=== PATIENT | female | born 1960 | race Two or more races ===

== ENCOUNTER 2024-11-06 13:18 | Emergency (ER) | payer MEDICAID, OTHER ==
[~2024-11-06] VITALS: Ht 157.5 cm; Wt 71.6 kg
--- NOTE | 2024-11-06 13:32 | ECG ---
[facility] Test Date: 2024-11-06 Test Time: 13:28:50 Pat Name: MYRIAM JASMINE Department: ER Room: Gender: F Garbage Depot Worker: SAURAV : 1960 Requested By: ELIAS GRIFFIN Order Number: [id number] Reading MD: Measurements Intervals [place] Rate: 111 P: 37 IN: 149 QRS: 10 QRSD: 62 T: 72 QT: 378 QTc: 514 Interpretive Statements Sinus tachycardia Low voltage, precordial leads Borderline T wave abnormalities Prolonged QT interval Please click the below link to view image of tracing.
--- NOTE | 2024-11-06 13:53 | ED.PDOC ---
History of Present Illness HPI Comments 64 y/o F, with a history of costochondritis, presents with c/o dizziness, mid- upper back pain, and shortness of breath, today. Patient reports on being sent from her PCP during in-person office visit to r/o PE, due to endorsement of symptoms in addition to being found with a low SpO2 (96% on RA). She endorses dizziness and intermittent pain and difficulty breathing symptoms for the past 1 week, following unprovoked onset. Patient states on still being ambulatory amidst dizziness symptom. She informs of no recent brain injuries, sick contact, travel, or other relevant information, with exception of current intravaginal estrogen regimen placement. Patient denies any chest pain, vision or speech changes, palpitations, nausea, vomiting, fever, chills, or other associated symptoms or modifiers at this time. Chief Complaint: Dizziness Time Seen by MD: 13:35 Reviewed Notes: Nurses Notes, Medications, Allergies Information Source: Patient Mode of Arrival: Ambulatory Severity: Moderate Timing: Weeks Prehospital treatment: None Past Medical History Past Medical History (Other): costochondritis Surgical History: Cholecystectomy, Hysterectomy (partial ) Surgical History (Other): cataract surgery CROP QUANTITATIVE GENETICIST History: Denies all CROP QUANTITATIVE GENETICIST Hx Family History Family History: Unknown Social History Smoker: Non-Smoker Alcohol: Denies ETOH Use Drugs: Denies Drug Use Lives In: Home All Other Systems: Reviewed and Negative (Comprehensive systems review obtained and negative except for what is stated in the HPI.) Physical Exam General Appearance: No Apparent Distress, Normal HEENT: Normal ENT Inspection, Pharynx Normal, TMs Normal Neck: Full Range of Motion, Non-Tender, Normal, Normal Inspection Respiratory: Chest Non-Tender, Lungs Clear, No Accessory Muscle Use, No Respiratory Distress, Normal Breath Sounds Cardiovascular: No Edema, No JVD, No Murmur, No Gallop, Normal Peripheral Pulses, Regular Rate/Rhythm Breast Exam: Deferred Gastrointestinal: No Organomegaly, Non Tender, No Pulsatile Mass, Normal Bowel Sounds, Soft Genitalia: Deferred Pelvic: Deferred Rectal: Deferred Extremities: No calf tenderness, Normal capillary refill, Normal inspection, Normal range of motion, Non-tender, No pedal edema Musculoskeletal : Apperance: Normal Neurologic: Alert, financial analysis consultant II-XII nml as Tested, No Motor Deficits, Normal Affect, Normal Mood, No Sensory Deficits, Other (Patient was alert and oriented and answering all questions appropriately, 5/5 strength to bilateral upper and lower extremities, ambulates with a steady gait without assistance, normal heel and toe walk, sensation intact to light touch throughout, cranial nerves 2-12 intact, no pronator drift) Cerebellar Function: Normal Reflexes: NOT DONE Skin: Dry, Normal Color, Warm Lymphatic: No Adenopathy Was a procedure done? Was a procedure done?: No EKG EKG : Pulse Rate (adult): 111 [place]: Normal Cardiac Rhythm: ST Block: None Hypertrophy: None ST: Normal Differential Dx Considerations may include: ND, PE, ACS, URI, PNA, viral syndrome, costochondritis, pericarditis, vertigo X-Ray, Labs, Meds, VS Vital Signs Date Time Temp Pulse Resp B/P (MAP) Pulse Ox O2 Delivery O2 Flow Rate FiO2 11/06/24 16:55 100 16 148/93 (111) 98 11/06/24 13:52 111 11/06/24 13:28 111 11/06/24 13:25 97.9 110 18 151/91 (111) 97 97.9 Lab Test 11/06/24 15:55 11/06/24 13:50 11/06/24 13:25 Range/Units Urine Color Colorless Yellow Urine Clarity Clear Clear Urine pH 7.0 5.0-9.0 Urine Specific [place] 1.007 1.001-1.035 Urine Protein Negative Negative Urine Ketones Negative Negative Urine Blood Negative Negative /uL Urine Nitrite Negative Negative Urine Bilirubin Negative Negative Urine Urobilinogen Normal Negative mg/dL Urine Leukocyte Esterase 3+ Negative /uL Urine RBC 2 0 - 4 /hpf Urine Microscopic WBC 27 H 0-5 /HPF Urine Squamous Epithelial Cells Few <5 /hpf Urine Bacteria None seen None Seen /hpf Urine Glucose Normal Normal mg/dL White Blood Count 8.1 4.4-10.8 10^3/uL Red Blood Count 4.99 4.0-5.20 10^6/uL Hemoglobin 14.4 12.2-16.2 g/dL Hematocrit 42.9 36.0-46.0 % Mean Corpuscular Volume 85.9 80.0-100.0 fL Mean Corpuscular Hemoglobin 28.8 28.0-32.0 pg Mean Corpuscular Hemoglobin Concent 33.5 32.0-36.0 g/dL Red Cell Distribution Width 14.0 11.8-14.3 % Platelet Count 478 H 140-450 10^3/uL Mean Platelet Volume 7.0 6.9-10.8 fL Neutrophils (%) (Auto) 51.5 37.0-80.0 % Lymphocytes (%) (Auto) 38.3 10.0-50.0 % Monocytes (%) (Auto) 6.1 0.0-12.0 % Eosinophils (%) (Auto) 3.1 0.0-7.0 % Basophils (%) (Auto) 1.0 0.0-2.0 % Neutrophils # (Auto) 4.1 1.6-8.6 10 ^3/uL Lymphocytes # (Auto) 3.1 0.4-5.4 10 ^3/uL Monocytes # (Auto) 0.5 0-1.3 10 ^3/uL Eosinophils # (Auto) 0.3 0-0.8 10 ^3/uL Basophils # (Auto) 0.1 0-0.2 10 ^3/uL Nucleated Red Blood Cells 0.0 % D-Dimer, Quantitative 0.24 0.0-0.49 mg/L FEU Sodium Level 139 136-145 mmol/L Potassium Level 4.2 3.5-5.1 mmol/L Chloride Level 103 98-107 mmol/L Carbon Dioxide Level 27 20-31 mmol/L Anion Gap 9 5-15 Blood Urea Nitrogen 7 L 9-23 mg/dL Creatinine 0.93 0.550-1.02 mg/dL Glomerular Filtration Rate Calc 69 >90 mL/min BUN/Creatinine Ratio 7.5 L 10.0-20.0 Serum Glucose 127 H 74-106 mg/dL Calcium Level 10.9 H 8.7-10.4 mg/dL Troponin I High Sensitivity < 3 L </=34 ng/L POC Glucose 175 H 70-106 mg/dl X-Ray, Labs, Meds, VS Comment 64-year-old female here today with the above complaints. Vital signs notable for initial tachycardia however improved to the 80s without any intervention. Patient was never hypoxic during her stay in the ER. Physical exam as above without any acute findings. Normal cardiac, pulmonary, and neurologic exams. D-dimer negative, doubt PE. Troponin negative, EKG without evidence of acute ischemia, heart score two, doubt ACS. CT head scan without any acute findings. Given the patient was overall reassuring workup, I provided the patient with reassurance and she was subsequently stated that she felt significantly improved and was tearful and stated she had been very anxious that she had a blood clot and she was going to from it after reading online and talking to her friends. The patient was a primary care doctor she can follow up with and I encouraged her to schedule an appointment in the next 2-3 days for re- evaluation. I provided the patient was strict return precautions for any signs of chest pain, numbness, weakness, headache, vision changes, shortness of breath, fevers, nausea/vomiting, or any other new or concerning symptoms. Patient expressed understanding and was discharged home in stable condition ambulating with a steady gait in no distress. Images Reviewed?: Images reviewed and evaluated by me Time of 1ST Reevaluation: 14:05 Reevaluation 1ST: Unchanged Time of 2ND Reevaluation: 15:07 Reevaluation 2ND: Heart rate low 80s Time of 3RD Reevaluation: 16:48 Reevaluation 3RD: Resolved Patient Education/Counseling: Diagnosis, Treatment, Prognosis, Need For Follow Up Family Education/Counseling: No Family Present Additional Information Previous medical encounters reviewed: N/A The following tests were ordered, and results were reviewed by me: UA, troponin, D-dimer, CBC, BMP, EKG, CT head w/o contrast Additional Information was gathered from interviewing the following independent historians: N/A I reviewed and agreed with the following test results read by other providers: CT head w/o contrast I discussed treatment and results with medical personnel and: Patient Departure 1 Departure Time of Disposition: 16:01 Impression: Primary Impression: Dizziness Disposition: 01 HOME / SELF CARE / HOMELESS Condition: Stable Critical Care Note Critical Care Time?: No Stability Stability form required: No Heart Score Heart Score: Heart Score Response (Comments) Value History Slightly Suspicious 0 EKG Normal 0 Age 45-64 1 Risk Factors 1 or 2 risk factors 1 Troponin Normal limit 0 Total 2 YARELY LAYNE Nov 06, 2024 13:52 ELIAS GRIFFIN MD Nov 06, 2024 15:07
--- NOTE | 2024-11-06 14:03 | DVH ---
EXAM: CT HEAD WITHOUT CONTRAST HISTORY: dizzy COMPARISON: None TECHNIQUE: Axial images of the head were obtained and reformatted in coronal and sagittal planes. All CT scans at this medical facility are performed using dose modulation techniques as appropriate t o a performed exam including the following: Automated exposure control was utilized; adjustment of th e MA and/or KV according to patient size; and use of iterative reconstruction technique. CT Dose: CTDI volume is 52.81 mGy. Dose-length product is 755.91 mGy*cm FINDINGS: There is no evidence of acute intracranial hemorrhage, mass, mass effect midline shift. There is no h ydrocephalus or extra-axial fluid collection. Newberry-white matter differentiation is maintained. The visualized paranasal sinuses and mastoid air cells are clear. The calvarium is intact. IMPRESSION: 1. No acute intracranial process. HS:Y
[2024-11-06 14:10] LABS: Basophils # (auto) 0.1 10 ^3/uL (0-0.2); Eosinophils # (auto) 0.3 10 ^3/uL (0-0.8); Eosinophils % (auto) 3.1 % (0.0-7.0); Hematocrit 42.9 % (36.0-46.0); Hemoglobin 14.4 g/dL (12.2-16.2); Lymphocytes # (auto) 3.1 10 ^3/uL (0.4-5.4); Lymphocytes % (auto) 38.3 % (10.0-50.0); Mean Corpuscular Hemoglobin 28.8 pg (28.0-32.0); Mean Corpuscular Hgb Conc. 33.5 g/dL (32.0-36.0); Mean Corpuscular Volume 85.9 fL (80.0-100.0); Monocytes # (auto) 0.5 10 ^3/uL (0-1.3); Monocytes % (auto) 6.1 % (0.0-12.0); Neutrophils # (auto) 4.1 10 ^3/uL (1.6-8.6); Neutrophils % (auto) 51.5 % (37.0-80.0); Platelet Count (auto) 478 10^3/uL (140-450); Red Blood Cells 4.99 10^6/uL (4.0-5.20); White Blood Cell 8.1 10^3/uL (4.4-10.8)
[2024-11-06 14:26] LABS: Chloride 103 mmol/L (98-107); Potassium 4.2 mmol/L (3.5-5.1); Sodium 139 mmol/L (136-145)
[2024-11-06 14:27] LABS: Anion Gap 9 (5-15); Carbon Dioxide 27 mmol/L (20-31)
[2024-11-06 14:32] LABS: BUN/Creatinine Ratio 7.5 (10.0-20.0); Blood Urea Nitrogen 7 mg/dL (9-23); Calcium 10.9 mg/dL (8.7-10.4); Glucose 127 mg/dL (74-106)
[2024-11-06 15:57] LABS: Urine Bacteria None Seen /hpf (None Seen)
[2024-11-06 16:01] LABS: Urine Blood Negative /uL (Negative); Urine Clarity Clear (Clear); Urine Color Colorless (Yellow); Urine Protein, UAD Negative (Negative); Urine Specific Gravity 1.007 (1.001-1.035); Urine Squamous Epithelial Cell FEW /hpf (<5); Urine Urobilinogen Normal (Negative); Urine WBC 27 /HPF (0-5)
[2024-11-06 18:10] VITALS: BP 126/78; PULSE 68; RESP 16; TEMP 97.9; O2SAT 98
== END 2024-11-06 18:12 | disposition home or self-care (01) ==
LOC: ER 13:18
DX: R42 Dizziness and giddiness (principal); R06.02 Shortness of breath; M54.6 Pain in thoracic spine; Z90.49 Acquired absence of other specified parts of digestive tract; Z90.710 Acquired absence of both cervix and uterus
CPT/HCPCS: 36415; 70450; 80048; 81001; 82947; 82962; 84484; 85025; 85379; 93005

== ENCOUNTER 2024-11-10 11:43 | Inpatient (IN) | payer MEDICAID ==
[~2024-11-10] VITALS: Ht 157.5 cm; Wt 74.0 kg
--- NOTE | 2024-11-10 12:36 | ED.PDOC ---
History of Present Illness HPI Comments 64 y/o F, with a history of costochondritis, fibromyalgia, thyroid disease, cholecystectomy, complete hysterectomy, and DM, presents with c/o shortness of breath, chest discomfort, and dizziness, today. Patient is a poor historian and reports on returning to the ED following previous visit on 11/06/24 for same symptoms, due to PCP requesting her to get a CT angio chest to r/o PE. She states on only having a CT head and all lab workup findings being benign prior to discharge during previous visit. She denies having any palpitations, vision or speech changes, fever, chills, or other associated symptoms or modifiers at this time. Chief Complaint: Shortness of Breath Time Seen by MD: 12:00 Primary Care Provider: ALVIN Reviewed Notes: Nurses Notes, Medications, Allergies Allergies: Coded Allergies: Iodine (Verified Allergy, Unknown, 11/10/24) Information Source: Patient Mode of Arrival: Ambulatory Severity: Moderate Timing: Hours Duration: Since onset Prehospital treatment: None Past Medical History PAST MEDICAL HISTORY: DM, Thyroid Past Medical History (Other): costochondritis, fibromyalgia Surgical History: Cholecystectomy, Hysterectomy (complete ) Surgical History (Other): cataract surgery CHIEF AIRPORT GUIDE History: Denies all CHIEF AIRPORT GUIDE Hx Family History Family History: Reviewed,noncontributory to illness, No family hx of DM, No family hx of Heart gage, No family hx of HTN, No family hx ofKidney gage, No family hx of Liver gage, No family hx of Lung gage, No family hx of Stroke, Family hx of Cancer (bladder cancer ) Social History Smoker: Non-Smoker Alcohol: Denies ETOH Use Drugs: Denies Drug Use Lives In: Home Constitutional: denies: chills, diaphoresis, fatigue, fever, malaise, sweats, weakness, others EENTM: denies: blurred vision, double vision, ear bleeding, ear discharge, ear drainage, ear pain, ear ringing, eye pain, eye redness, hearing loss, mouth pain, mouth swelling, nasal discharge, nose bleeding, nose congestion, nose pain, photophobia, tearing, throat pain, throat swelling, voice changes, others Respiratory: reports: shortness of breath; denies: cough, hemoptysis, orthopnea, SOB at rest, SOB with excertion, stridor, wheezing, others Cardiovascular: reports: chest pain, dizzy spells; denies: diaphoresis, Dyspnea on exertion, edema, irregular heart beat, left arm pain, lightheadedness, palpitations, PND, syncope, others Gastrointestinal: denies: abdomen distended, abdominal pain, blood streaked bowels, constipated, diarrhea, dysphagia, difficulty swallowing, hematemesis, melena, nausea, poor appetite, poor fluid intake, rectal bleeding, rectal pain, vomiting, others Genitourinary: denies: abnormal vagina bleeding, burning, dyspareunia, dysuria, flank pain, frequency, hematuria, incontinence, pain, , vagina discharge, urgency, others Neurological: denies: dizziness, fainting, headache, left sided numbness, left sided weakness, numbness, paresthesia, pre-existing deficit, right sided numbness, right sided weakness, seizure, speech problems, tingling, tremors, weakness, others Musculoskeletal: denies: back pain, gout, joint pain, joint swelling, muscle pain, muscle stiffness, neck pain, others Integumetry: denies: bruises, change in color, change in hair/nails, dryness, laceration, lesions, lumps, rash, wounds, others Allergic/Immunocompromised: denies: Difficulty Healing, Frequent Infections, Hives, Itching, others Hematologic/Lymphatic: denies: anemia, blood clots, easy bleeding, easy bruising, swollen glands, others Endocrine: denies: excessive hunger, excessive sweating, excessive thirst, excessive urination, flushing, intolerance to cold, intolerance to heat, unexplained weight gain, unexplained weight loss, others Psychiatric: denies: anxiety, bipolar disorder, depression, hopeless, panic disorder, schizophrenia, sleepless, suicidal, others All Other Systems: Reviewed and Negative Physical Exam General Appearance: No Apparent Distress HEENT: Normal ENT Inspection, Pharynx Normal, TMs Normal Neck: Full Range of Motion, Non-Tender, Normal, Normal Inspection Respiratory: Chest Non-Tender, Lungs Clear, No Accessory Muscle Use, No Respiratory Distress, Normal Breath Sounds Cardiovascular: No Edema, No JVD, No Murmur, No Gallop, Normal Peripheral Pulses, Regular Rate/Rhythm Breast Exam: Deferred Gastrointestinal: No Organomegaly, Non Tender, No Pulsatile Mass, Normal Bowel Sounds, Soft Genitalia: Deferred Pelvic: Deferred Rectal: Deferred Extremities: No calf tenderness, Normal capillary refill, Normal inspection, Normal range of motion, Non-tender, No pedal edema Musculoskeletal : Apperance: Normal Neurologic: Alert, breaker oiler II-XII nml as Tested, No Motor Deficits, Normal Affect, Normal Mood, No Sensory Deficits Cerebellar Function: Normal Reflexes: Normal Skin: Dry, Normal Color, Warm Lymphatic: No Adenopathy Was a procedure done? Was a procedure done?: No Differential Dx Considerations may include: VA, PE, ACS, URI, PNA, viral syndrome, costochondritis, electrolyte imbalance, vertigo, among others X-Ray, Labs, Meds, VS Vital Signs Date Time Temp Pulse Resp B/P (MAP) Pulse Ox O2 Delivery O2 Flow Rate FiO2 11/10/24 12:06 97.8 100 18 131/93 (106) 96 97.8 Current Medications Medications (Trade) Dose Ordered Sig/Liila Route Start Time Stop Time Status Last Admin Diphenhydramine HCl (Benadryl Injection) 25 mg ONCE ONCE IV 11/10/24 12:00 11/10/24 12:01 DC 11/10/24 13:45 The patient had some labs done on 11/06 which we feel is good enough to do the CAT scan of the chest to rule out PE. The patient was given Benadryl 25 mg IV push prior to the CAT scan The CAT scan of the chest to rule out PE is negative The patient was vital signs have remained stable The patient was being discharged and will follow up with her primary care doctor The patient will return to the emergency department's condition worsens. Images Reviewed?: Images reviewed and evaluated by me Time of 1ST Reevaluation: 12:30 Reevaluation 1ST: Unchanged Patient Education/Counseling: Diagnosis, Treatment, Prognosis, Need For Follow Up Family Education/Counseling: No Family Present Departure 1 Departure Time of Disposition: 16:07 Impression: Primary Impression: Dizziness Disposition: 01 HOME / SELF CARE / HOMELESS Condition: Fair Discharged With: Self Critical Care Note Critical Care Time?: No Stability Stability form required: No Heart Score Heart Score: Heart Score Response (Comments) Value History Moderate Suspicious 1 EKG Normal 0 Age 45-64 1 Risk Factors No known risk factors 0 Troponin Normal limit 0 Total 2 I personally scribed for BAILEE ZUNIGA MD ([email or web address]) on 11/10/24 at 12:36. Electronically submitted by Davie Shah ([email or web address]). I personally scribed for BAILEE ZUNIGA MD ([email or web address]) on 11/10/24 at 12:37. Electronically submitted by Davie Shah ([email or web address]). BAILEE ZUNIGA MD Nov 10, 2024 12:36
[2024-11-10] MEDS: diphenhdrAMINE HCL 50 MG/1 ML VL IV ONE (13:45)
--- NOTE | 2024-11-10 15:27 | DVH ---
CTA Chest with intravenous contrast INDICATION: sob COMPARISON: None TECHNIQUE: Multidetector spiral CTA of the chest was performed of the chest with intravenous contrast . PULMONARY ANGIOGRAPHY PROTOCOL was utilized using a bolus-tracking technique centered on the main p ulmonary artery. Axial, coronal and sagittal multiplanar and MIP reformats were performed. CONTRAST: Type of contrast: Omni 350 Contrast injected: 80 ml Radiation dose : Chest: CTDI volume is 11 mGy. Dose-length product is 363 mGy*cm The dose indicators for CT are the volume computed Tomography (CT) dose Index (CTDIvol) and the dose Length product (DLP), and are measured in units of mGy and mGy-cm, respectively. These indicators are not patient dose, but values generated from the CT scanner acquisition factors. The report includes radiation exposure data for exposures received during this examination. Findings: Pulmonary artery: No pulmonary embolism Lower neck: Normal thyroid. Lungs: Low lung volumes with streaky atelectasis in the lung bases. Curvilinear atelectasis or scarri ng in the right upper lung. Heart/Vascular Structures: Normal heart size. No pericardial effusion. Lymph Nodes: No adenopathy Pleura: No pleural effusion or significant pneumothorax. Musculoskeletal: Likely bone island in the T8 vertebral body. Soft tissues: Normal. Upper abdomen: Limited portions of the upper abdomen are unremarkable. IMPRESSION: 1. No pulmonary embolism. 2. Low lung volumes with streaky atelectasis in the lung bases. Curvilinear atelectasis or scarring in the right upper lung. No suspicious consolidation or nodule identified. HS:Y
[2024-11-10 16:32] VITALS: PULSE 82; RESP 18; O2SAT 97
[2024-11-10 17:29] LABS: Basophils # (auto) 0.1 10 ^3/uL (0-0.2); Basophils % (auto) 0.8 % (0.0-2.0); Eosinophils # (auto) 0.3 10 ^3/uL (0-0.8); Eosinophils % (auto) 2.9 % (0.0-7.0); Hematocrit 44.7 % (36.0-46.0); Hemoglobin 14.7 g/dL (12.2-16.2); Lymphocytes # (auto) 3.2 10 ^3/uL (0.4-5.4); Lymphocytes % (auto) 32.5 % (10.0-50.0); Mean Corpuscular Hemoglobin 28.9 pg (28.0-32.0); Mean Corpuscular Hgb Conc. 32.9 g/dL (32.0-36.0); Mean Corpuscular Volume 87.7 fL (80.0-100.0); Monocytes # (auto) 0.5 10 ^3/uL (0-1.3); Monocytes % (auto) 5.5 % (0.0-12.0); Neutrophils # (auto) 5.8 10 ^3/uL (1.6-8.6); Neutrophils % (auto) 58.3 % (37.0-80.0); Platelet Count (auto) 441 10^3/uL (140-450); Red Cell Distribution Width 14.3 % (11.8-14.3); White Blood Cell 9.9 10^3/uL (4.4-10.8)
[2024-11-10 17:41] LABS: Chloride 103 mmol/L (98-107); Potassium 3.9 mmol/L (3.5-5.1); Sodium 137 mmol/L (136-145)
[2024-11-10 17:42] LABS: Anion Gap 10 (5-15); Carbon Dioxide 24 mmol/L (20-31)
[2024-11-10 17:48] LABS: BUN/Creatinine Ratio 11.5 (10.0-20.0); Blood Urea Nitrogen 10 mg/dL (9-23); Calcium 10.6 mg/dL (8.7-10.4); Glucose 118 mg/dL (74-106)
[2024-11-10] MEDS ORDERED: DEXTROSE (50%) 50ML SYRG IV PRN (22:15)
[2024-11-10 22:22] VITALS: BP 152/99; PULSE 82; RESP 18; TEMP 97.8; O2SAT 97
--- NOTE | 2024-11-10 22:28 | DVHHP2 ---
History of Present Illness Reason for Visit: Shortness of breath History of Present Illness 64-year-old female presents for evaluation of shortness for breath. Patient endorses a one-week history of worsening shortness for breath. She reports symptoms starting spontaneously. She states having now constant shortness for breath with minimal exertion and at rest. Denies chest pain, she does report a history of costochondritis. No cough or fever. No other acute complaints reported. Past Medical History Thyroid, diabetes mellitus, fibromyalgia, costochondritis Past Surgical History Cholecystectomy and hysterectomy Family History Noncontributory Smoke: No ALCOHOL: none Drugs: None Lives: with Family Review of Systems Review of Systems Review of systems are currently negative otherwise addressed in HPI. Allergies: Coded Allergies: Iodine (Verified Allergy, Unknown, 11/10/24) Exam Vital Signs Vital Signs Date Time Temp Pulse Resp B/P (MAP) Pulse Ox O2 Delivery O2 Flow Rate FiO2 11/10/24 18:38 82 18 152/99 (116) 97 11/10/24 16:32 Room Air* 0 21 11/10/24 12:06 97.8 97.8 Exam Gen: 64-year-old female in mild distress Skin: Warm, dry, normal color and texture, no rash. HEENT: Normocephalic atraumatic, mucous membranes moist and pink. Neck: Cervical and supraclavicular nodes normal without enlargement, trachea is midline, thyroid gland is normal without masses. Pulmonary: Diminished breath sounds bilaterally Cardiac: Regular rate and rhythm. No murmur Abdomen: Soft, nontender, nondistended, bowel sounds present all 4 quadrants, no guarding, no rigidity, no organomegaly. Extremities: No cyanosis, clubbing, no edema Neuro: Cranial nerves II through XII grossly intact, normal affect and speech, no focal motor deficits. Labs/Xrays ORDERING PHYSICIAN: BAILEE ZUNIGA MD PROCEDURE(s): CTACH - CT ANGIO CHEST CONTRAST REASON: sob ORDER NUMBER(s): [id number], ACCESSION NUMBER(s): [id number] CTA Chest with intravenous contrast INDICATION: sob COMPARISON: None TECHNIQUE: Multidetector spiral CTA of the chest was performed of the chest with intravenous contrast. PULMONARY ANGIOGRAPHY PROTOCOL was utilized using a bolus- tracking technique centered on the main pulmonary artery. Axial, coronal and sagittal multiplanar and MIP reformats were performed. CONTRAST: Type of contrast: Omni 350 Contrast injected: 80 ml Radiation dose : Chest: CTDI volume is 11 mGy. Dose-length product is 363 mGy*cm The dose indicators for CT are the volume computed Tomography (CT) dose Index (CTDIvol) and the dose Length product (DLP), and are measured in units of mGy and mGy-cm, respectively. These indicators are not patient dose, but values generated from the CT scanner acquisition factors. The report includes radiation exposure data for exposures received during this examination. Findings: Pulmonary artery: No pulmonary embolism Lower neck: Normal thyroid. Lungs: Low lung volumes with streaky atelectasis in the lung bases. Curvilinear atelectasis or scarring in the right upper lung. Heart/Vascular Structures: Normal heart size. No pericardial effusion. Lymph Nodes: No adenopathy Pleura: No pleural effusion or significant pneumothorax. Musculoskeletal: Likely bone island in the T8 vertebral body. Soft tissues: Normal. Upper abdomen: Limited portions of the upper abdomen are unremarkable. IMPRESSION: 1. No pulmonary embolism. 2. Low lung volumes with streaky atelectasis in the lung bases. Curvilinear atelectasis or scarring in the right upper lung. No suspicious consolidation or nodule identified. HS:Y Labs Test 11/10/24 21:06 11/10/24 17:03 Range/Units Troponin I High Sensitivity < 3 L </=34 ng/L White Blood Count 9.9 4.4-10.8 10^3/uL Red Blood Count 5.10 4.0-5.20 10^6/uL Hemoglobin 14.7 12.2-16.2 g/dL Hematocrit 44.7 36.0-46.0 % Mean Corpuscular Volume 87.7 80.0-100.0 fL Mean Corpuscular Hemoglobin 28.9 28.0-32.0 pg Mean Corpuscular Hemoglobin Concent 32.9 32.0-36.0 g/dL Red Cell Distribution Width 14.3 11.8-14.3 % Platelet Count 441 140-450 10^3/uL Mean Platelet Volume 6.8 L 6.9-10.8 fL Neutrophils (%) (Auto) 58.3 37.0-80.0 % Lymphocytes (%) (Auto) 32.5 10.0-50.0 % Monocytes (%) (Auto) 5.5 0.0-12.0 % Eosinophils (%) (Auto) 2.9 0.0-7.0 % Basophils (%) (Auto) 0.8 0.0-2.0 % Neutrophils # (Auto) 5.8 1.6-8.6 10 ^3/uL Lymphocytes # (Auto) 3.2 0.4-5.4 10 ^3/uL Monocytes # (Auto) 0.5 0-1.3 10 ^3/uL Eosinophils # (Auto) 0.3 0-0.8 10 ^3/uL Basophils # (Auto) 0.1 0-0.2 10 ^3/uL Nucleated Red Blood Cells 0.0 % Sodium Level 137 136-145 mmol/L Potassium Level 3.9 3.5-5.1 mmol/L Chloride Level 103 98-107 mmol/L Carbon Dioxide Level 24 20-31 mmol/L Anion Gap 10 5-15 Blood Urea Nitrogen 10 9-23 mg/dL Creatinine 0.87 0.550-1.02 mg/dL Glomerular Filtration Rate Calc 75 >90 mL/min BUN/Creatinine Ratio 11.5 10.0-20.0 Serum Glucose 118 H 74-106 mg/dL Calcium Level 10.6 H 8.7-10.4 mg/dL Assessment/Plan Assessment/Plan Assessment Acute respiratory distress Diabetes mellitus Plan Admit the patient to [facility] to the hospitalist Pulmonary consultation Echocardiogram pending Resume home medications Continue treatment per orders. Plan discussed with: Patient My Orders Orders - NEERAJ SOLOMON AGACN Procedure Category Date Status Time Atorvastatin (Lipitor) PHA 11/11/24 Logged 22:00 Gabapentin Capsule PHA 11/11/24 Logged (Neurontin Capsule) 10:00 *Consult CONS 11/10/24 Transmitted / 22:04 Albuterol Medneb PHA 11/10/24 Logged (Ventolin Medneb) 22:15 B-Type Natriuretic LAB 11/10/24 In Process Peptide 22:04 Echo 2d Mode Cardiac US 11/10/24 Logged DOP 22:04 Basic Metabolic Panel LAB 11/11/24 Verified 04:00 Glucose Blood PHA 11/11/24 Logged (Accu-Chek Comfort 00:00 Insulin R (Human) PHA 11/11/24 Logged (Insulin R) 00:00 Dextrose 50% Syringe PHA 11/10/24 Logged 22:15 Admit ADMIT 11/10/24 Transmitted 22:04 Ondansetron Hcl PHA 11/10/24 Logged (Zofran) 22:15 Enoxaparin Sodium PHA 11/11/24 Logged (Lovenox) 10:00 Cardiac DIET 11/11/24 Transmitted Diet-2gna,Lofat,Lochol Breakfast Condition: Stable KRYSTIAN 11/10/24 In Process 22:04 Bedrest With Bathroom KRYSTIAN 11/10/24 In Process Privileg 22:04 Date of Service: Nov 10, 2024 Billing Provider: NEERAJ SOLOMON Common Visit Codes: [id number] INP/OBS CARE (HIGH) NEREAJ SOLOMON Nov 10, 2024 22:27
[2024-11-11] VITALS (11 sets, daily range): BP systolic 119–170; BP diastolic 69–99; PULSE 79–124; RESP 16–19; TEMP 97.4–98.1; O2SAT 93–98
[2024-11-11] MEDS: InsuLIN REG 1unit/0.01ml Soln (100units/ml) SC SCH
[2024-11-11] MEDS: ACCU-CHEK COMFORT CURVE STRIP VI SCH (01:11)
[2024-11-11] MEDS: ACETAMINOPHEN 325 MG TAB PO PRN (02:11)
[2024-11-11] MEDS: hydrALAZINE HCL 20 MG/ML VL IV ONE (02:12)
[2024-11-11] MEDS: LISINOPRIL 5 MG TAB PO ONE (02:12)
[2024-11-11] MEDS ORDERED: PANT40TA2 PO (02:40)
[2024-11-11] MEDS ORDERED: ZOLP10TA6 PO (02:40)
[2024-11-11] MEDS ORDERED: OXY5T GT (02:40)
[2024-11-11] MEDS ORDERED: TRAZ-227 PO (02:40)
[2024-11-11] MEDS ORDERED: CETI10TA2 PO (02:40)
[2024-11-11] MEDS ORDERED: ROSU10TA16 PO (02:40)
[2024-11-11] MEDS ORDERED: ALPR1TAB2 PO (02:40)
[2024-11-11] MEDS ORDERED: ALPR1TAB7 PO (02:40)
[2024-11-11] MEDS ORDERED: GLYB5TAB8 PO (02:40)
[2024-11-11] MEDS ORDERED: SENN-58 PO (02:40)
[2024-11-11] MEDS ORDERED: oxyCODONE HCL 5MG TAB PO PRN (03:15)
[2024-11-11] MEDS: oxyCODONE HCL 5MG TAB PO PRN (03:26)
[2024-11-11 06:02] LABS: Anion Gap 12 (5-15); Carbon Dioxide 21 mmol/L (20-31); Chloride 106 mmol/L (98-107); Potassium 3.7 mmol/L (3.5-5.1); Sodium 139 mmol/L (136-145)
[2024-11-11 06:08] LABS: BUN/Creatinine Ratio 12.9 (10.0-20.0); Blood Urea Nitrogen 11 mg/dL (9-23)
[2024-11-11 06:16] LABS: Calcium 10.7 mg/dL (8.7-10.4); Glucose 127 mg/dL (74-106)
[2024-11-11] MEDS ORDERED: IBU600T PO (07:30)
[2024-11-11] MEDS: ALBUTEROL SULF 2.5 MG/0.5ML(0.5%) NEB SOLN NEB PRN (08:41)
[2024-11-11] MEDS: GABAPENTIN 100 MG CAP PO SCH (10:00)
[2024-11-11] MEDS: ENOXAPARIN SOD 40 MG/0.4 ML SYRINGE SC SCH (10:50)
[2024-11-11] MEDS: ONDANSETRON HCL 4 MG/2 ML VIAL IV PRN (12:08)
--- NOTE | 2024-11-11 13:19 | DVHPN2 ---
Reviewed: Care Plan, H&P, Labs, Medications, Previous Orders Changes from previous H/P or p: No Changes General: Per HPI Objective Vitals Vital Signs Date Time Temp Pulse Resp B/P (MAP) Pulse Ox O2 Delivery O2 Flow Rate FiO2 11/11/24 13:00 97.4 79 18 120/77 (91) 97 97.4 11/11/24 10:05 Room Air* 0 21 Intake/Output Intake and Output 11/11/24 07:00 Intake Total 0 ml Balance 0 ml Intake Oral 0 ml # Voids 2 Medications Current Medications Medications Dose Ordered Sig/Lilia Route Start Time Stop Time Status Last Admin Dose Admin Atorvastatin Calcium 10 mg HS PO 11/11/24 22:00 Gabapentin 100 mg DAILY PO 11/11/24 10:00 Albuterol 2.5 mg Q6HPRN PRN NEB 11/10/24 22:15 11/11/24 08:41 2.5 MG Diagnostic Test (Pha) 1 strip Q6HR 11/11/24 00:00 11/11/24 12:12 1 STRIP Insulin Human Regular Q6HR SC 11/11/24 00:00 11/11/24 05:57 2 UNITS Dextrose 50 ml UD PRN IV 11/10/24 22:15 Ondansetron HCl 4 mg Q4HP PRN IV 11/10/24 22:15 11/11/24 12:08 4 MG Enoxaparin Sodium 40 mg DAILY SC 11/11/24 10:00 11/11/24 10:50 40 MG Acetaminophen 650 mg Q8HPRN PRN PO 11/11/24 01:45 11/11/24 10:49 650 MG Oxycodone HCl 10 mg TIDPRN PRN PO 11/11/24 03:15 11/11/24 03:26 10 MG Laboratory Results Laboratory Tests 11/10/24 17:03 11/11/24 05:12 Chemistry Test 11/10/24 17:03 11/11/24 05:12 Calcium Level 10.6 mg/dL (8.7-10.4) H 10.7 mg/dL (8.7-10.4) H Cardiac Markers Test 11/10/24 17:03 B-Type Natriuretic Peptide 0.41 pg/mL (0-100) Assessment/Plan Assessment/Plan Acute respiratory distress Diabetes mellitus Plan Admit the patient to [facility] to the hospitalist Pulmonary consultation Echocardiogram pending Plan discussed with: Patient Date of Service: Nov 11, 2024 Billing Provider: JENNA PYLE DO Common Visit Codes: [id number] INP/OBS CARE(HIGH) JENNA PYLE DO Nov 11, 2024 13:19
[2024-11-11] MEDS ORDERED: MILN50TA PO (19:36)
[2024-11-11] MEDS: ATORVASTATIN 20 MG TAB PO SCH (21:09)
[2024-11-11] MEDS: traZODone HCL 50 MG TAB PO SCH (22:00)
[2024-11-12] VITALS (11 sets, daily range): BP systolic 81–117; BP diastolic 45–76; PULSE 71–115; RESP 17–18; TEMP 97.3–98.5; O2SAT 94–97
--- NOTE | 2024-11-12 15:08 | DVHPN2 ---
Reviewed: Care Plan, H&P, Labs, Medications, Previous Orders Changes from previous H/P or p: No Changes General: Per HPI Objective Vitals Vital Signs Date Time Temp Pulse Resp B/P (MAP) Pulse Ox O2 Delivery O2 Flow Rate FiO2 11/12/24 12:53 97.7 83 18 88/55 (66) 96 97.7 11/12/24 10:15 Room Air* 0 21 Intake/Output Intake and Output 11/12/24 07:00 Intake Total 5034 ml Balance 5034 ml Intake Oral 5034 ml # Voids 14 Medications Current Medications Medications Dose Ordered Sig/Lilia Route Start Time Stop Time Status Last Admin Dose Admin Atorvastatin Calcium 10 mg HS PO 11/11/24 22:00 Gabapentin 100 mg DAILY PO 11/11/24 10:00 Albuterol 2.5 mg Q6HPRN PRN NEB 11/10/24 22:15 11/11/24 08:41 2.5 MG Diagnostic Test (Pha) 1 strip Q6HR 11/11/24 00:00 11/12/24 12:20 1 STRIP Insulin Human Regular Q6HR SC 11/11/24 00:00 11/12/24 12:21 2 UNITS Dextrose 50 ml UD PRN IV 11/10/24 22:15 Ondansetron HCl 4 mg Q4HP PRN IV 11/10/24 22:15 11/11/24 12:08 4 MG Enoxaparin Sodium 40 mg DAILY SC 11/11/24 10:00 11/12/24 09:30 40 MG Acetaminophen 650 mg Q8HPRN PRN PO 11/11/24 01:45 11/12/24 00:21 650 MG Oxycodone HCl 10 mg TIDPRN PRN PO 11/11/24 03:15 11/12/24 09:40 10 MG Trazodone HCl 50 mg HS PO 11/11/24 22:00 Laboratory Results Laboratory Tests 11/10/24 17:03 11/11/24 05:12 Assessment/Plan Assessment/Plan Acute respiratory distress Diabetes mellitus Plan Admit the patient to [facility] to the hospitalist Pulmonary consultation Echocardiogram pending Plan discussed with: Patient My Orders Orders - JENNA PYLE DO Procedure Category Date Status Time Brain Head Wo Contrast MRI 11/12/24 Transmitted 15:07 Date of Service: Nov 12, 2024 Billing Provider: JENNA PYLE DO Common Visit Codes: [id number] INP/OBS CARE(HIGH) JENNA PYLE DO Nov 12, 2024 15:08
[2024-11-12] MEDS ORDERED: MECLIZINE HCL 25 MG TAB PO PRN (15:15)
--- NOTE | 2024-11-12 16:04 | DVHINCON2 ---
Date of service: Nov 11, [address] Mccall Reason for Consultation Acute respiratory distress, atelectasis History of Present Illness A 64-year-old woman with past medical history of thyroid disease, diabetes mellitus, fibromyalgia, and costochondritis who presented to ED on 11/10/24 for evaluation of shortness of breath. Patient c/o 1-week history of worsening shortness of breath. She reported symptoms started spontaneously, currently having constant shortness of breath with minimal exertion and at rest. Denied chest pain. Positive history of costochondritis. No cough or fever. No other acute complaints reported. Patient was admitted for further care, and pulmonary consultation is requested for evaluation and management due to the above findings. Review of Systems: 14-point review of systems negative unless otherwise noted above. Past Medical History Thyroid disease, diabetes mellitus, fibromyalgia, costochondritis Past Surgical History Cholecystectomy and hysterectomy. Medications: Reviewed. Allergies: Iodine Family History: Bladder cancer Leukemia Stomach cancer Malignant neoplasm of breast. Social History: Nonsmoker. No alcohol or illicit drug use. Family History: FH: bladder cancer G8 FATHER FH: leukemia Grandmother FH: stomach cancer Grandmother Malignant neoplasm of breast Grandmother Allergies: Coded Allergies: Iodine (Verified Allergy, Unknown, 11/10/24) Home Meds Reported Medications Milnacipran Hydrochloride (Savella) 50 Mg Tab, 100 MG PO BID, TAB 11/11/24 Ibuprofen Micronized (MOTRIN TABLET) 600 Mg Tb, 800 MG PO PRN, #40 TAB *Black box warning-NSAIDS can increase risk of ID & hypertension, GI irritation, ulceration, bleed, perferation. Do not use post cardiac surgery. Use short duration/lowest effective dose. 11/11/24 Trazodone Hcl (Trazodone Hcl) 50 Mg Tab, 50 MG PO, MG 11/11/24 Rosuvastatin Calcium (Crestor) 10 Mg Tab, 10 MG PO, TAB 11/11/24 Zolpidem Tartrate (Zolpidem Tartrate) 10 Mg Tab, 10 MG PO, TAB 11/11/24 Cetirizine Hcl (Kls Aller-Ron) 10 Mg Tab, 10 MG PO, TAB 11/11/24 Alprazolam (Alprazolam) 1 Mg Tab, 1 MG PO, TAB 11/11/24 Glyburide (Glyburide) 5 Mg Tab, 5 MG PO for 30 Days, MG 11/11/24 Alprazolam (Xanax) 1 Mg Tab, 1 MG PO, TAB 11/11/24 Pantoprazole Sodium Sesquihydr (Protonix) 40 Mg Tab, 40 MG PO DAILY, #30 TAB 11/11/24 Senna (Senokot) 8.6 Mg Tab, 8.6 MG PO, TAB 11/11/24 Oxycodone Hcl (OXYCODONE HCL) 5 Mg Tb, 5 MG GT, TAB 11/11/24 Current Medications Current Medications Medications (Trade) Dose Ordered Sig/Lilia Route PRN Reason Start Time Stop Time Status Last Admin Atorvastatin Calcium (Lipitor) 10 mg HS PO 11/11/24 22:00 Trazodone HCl (Desyrel) 50 mg HS PO 11/11/24 22:00 Meclizine HCl (Antivert Tablet) 25 mg Q6HPRN PRN PO DIZZINESS 11/12/24 15:15 Vital Signs Vital Signs Date Time Temp Pulse Resp B/P (MAP) Pulse Ox O2 Delivery O2 Flow Rate FiO2 11/12/24 12:53 97.7 83 18 88/55 (66) 96 97.7 11/12/24 10:15 Room Air* 0 21 Physical Exam Gen.: Patient lying in bed in no apparent distress. Breathing on room air. Head: Normocephalic, atraumatic. Eyes: EOMI/PERRLA. Ears: Normal hearing. Normal anatomy. Neck/trachea: Trachea midline, supple. Nose: Normal external anatomy. Mouth: Moist mucous membranes. Chest: Decreased air entry bilaterally. No wheezing or rhonchi. Cardiovascular: Positive S1, positive S2. Regular rate and rhythm. Abdomen: Positive bowel sounds in all 4 quadrants. Soft, non-tender, non- distended. : Deferred. Rectal: Deferred. Skin: Warm, dry. Intact. Extremities: 2+ radial pulses bilaterally. No lower extremity edema. Neuro: Awake, alert, oriented x3. No gross motor or sensory deficits. Cranial nerves II through XII intact. Gait not assessed. Labs/Diagnostic Data Labs Test 11/12/24 12:13 11/11/24 05:12 11/10/24 21:06 11/10/24 17:03 Range/Units POC Glucose 143 H 70-106 mg/dl Sodium Level 139 136-145 mmol/L Potassium Level 3.7 3.5-5.1 mmol/L Chloride Level 106 98-107 mmol/L Carbon Dioxide Level 21 20-31 mmol/L Anion Gap 12 5-15 Blood Urea Nitrogen 11 9-23 mg/dL Creatinine 0.85 0.550-1.02 mg/dL Glomerular Filtration Rate Calc 77 >90 mL/min BUN/Creatinine Ratio 12.9 10.0-20.0 Serum Glucose 127 H 74-106 mg/dL Calcium Level 10.7 H 8.7-10.4 mg/dL Troponin I High Sensitivity < 3 L </=34 ng/L White Blood Count 9.9 4.4-10.8 10^3/uL Red Blood Count 5.10 4.0-5.20 10^6/uL Hemoglobin 14.7 12.2-16.2 g/dL Hematocrit 44.7 36.0-46.0 % Mean Corpuscular Volume 87.7 80.0-100.0 fL Mean Corpuscular Hemoglobin 28.9 28.0-32.0 pg Mean Corpuscular Hemoglobin Concent 32.9 32.0-36.0 g/dL Red Cell Distribution Width 14.3 11.8-14.3 % Platelet Count 441 140-450 10^3/uL Mean Platelet Volume 6.8 L 6.9-10.8 fL Neutrophils (%) (Auto) 58.3 37.0-80.0 % Lymphocytes (%) (Auto) 32.5 10.0-50.0 % Monocytes (%) (Auto) 5.5 0.0-12.0 % Eosinophils (%) (Auto) 2.9 0.0-7.0 % Basophils (%) (Auto) 0.8 0.0-2.0 % Neutrophils # (Auto) 5.8 1.6-8.6 10 ^3/uL Lymphocytes # (Auto) 3.2 0.4-5.4 10 ^3/uL Monocytes # (Auto) 0.5 0-1.3 10 ^3/uL Eosinophils # (Auto) 0.3 0-0.8 10 ^3/uL Basophils # (Auto) 0.1 0-0.2 10 ^3/uL Nucleated Red Blood Cells 0.0 % B-Type Natriuretic Peptide 0.41 0-100 pg/mL Assessment Impression: Acute respiratory distress Atelectasis, right upper lobe Fibromyalgia DM type 2 w/ hyperglycemia PE ruled out Costochondritis Overweight, BMI 29.3 Plan: Supplemental oxygen PRN Titrate to keep O2 sats above 92%. CT angio (11/10/24) demonstrated no pulmonary embolism. Low lung volumes with streaky atelectasis in the lung bases. Curvilinear atelectasis or scarring in the right upper lung. Continue bronchodilators. Incentive spirometry Follow up Echocardiogram Follow up Cardiology recommendations Accu-Cheks, ISS. Monitor renal function. Monitor electrolytes. Supplement as necessary. Monitor ins and outs. Diet and lifestyle modifications for weight reduction Recommend outpatient followup w/ Rheumatology DVT prophylaxis. Prognosis: Poor given patient's multiple co-morbidities. Rest of plan per hospitalist and other consultants. Thank you, Dr. Mccall, for allowing me to participate in this patient's care. Further recommendations will depend on the patient's clinical course. Please do not hesitate to contact me if you have any questions or concerns. This medical document was created using an electronic medical record system with [employer] dictation system. Although these documentations are being carefully reviewed, there may still be some phonetic and typographical changes. The errors are purely typographical, due to imperfection on the software program, and do not reflect any compromise in the patient's medical care. Plan discussed with: Patient, Other (RN/Dr. Mccall) JUAN RHODES MD Nov 12, 2024 16:04
--- NOTE | 2024-11-12 21:57 | DVHPN2 ---
Progress Note - Dictate Date Seen: Nov 12, 2024 Medical Necessity Reason Pt with a Central, PICC or Fol: No Subjective Patient seen and examined at bedside. Breathing comfortably on room air. Overnight events reviewed. vital signs Vital Sign Date Time Temp Pulse Resp B/P (MAP) Pulse Ox O2 Delivery O2 Flow Rate FiO2 11/12/24 21:00 98.5 80 17 117/70 (86) 95 98.5 11/12/24 19:44 Room Air* 0 21 Total Intake and Output 11/11/24 11/11/24 11/12/24 15:00 23:00 07:00 Intake Total 1834 ml 3200 ml Balance 1834 ml 3200 ml medications Current Medications Medications Dose Ordered Sig/Lilia Route Start Time Stop Time Status Last Admin Dose Admin Atorvastatin Calcium 10 mg HS PO 11/11/24 22:00 11/12/24 21:13 10 MG Gabapentin 100 mg DAILY PO 11/11/24 10:00 Albuterol 2.5 mg Q6HPRN PRN NEB 11/10/24 22:15 11/11/24 08:41 2.5 MG Diagnostic Test (Pha) 1 strip Q6HR 11/11/24 00:00 11/12/24 18:15 1 STRIP Insulin Human Regular Q6HR SC 11/11/24 00:00 11/12/24 12:21 2 UNITS Dextrose 50 ml UD PRN IV 11/10/24 22:15 Ondansetron HCl 4 mg Q4HP PRN IV 11/10/24 22:15 11/12/24 18:08 4 MG Enoxaparin Sodium 40 mg DAILY SC 11/11/24 10:00 11/12/24 09:30 40 MG Acetaminophen 650 mg Q8HPRN PRN PO 11/11/24 01:45 11/12/24 18:08 650 MG Oxycodone HCl 10 mg TIDPRN PRN PO 11/11/24 03:15 11/12/24 19:31 10 MG Trazodone HCl 50 mg HS PO 11/11/24 22:00 11/12/24 21:13 50 MG Meclizine HCl 25 mg Q6HPRN PRN PO 11/12/24 15:15 objective Gen.: Patient lying in bed in no apparent distress. Breathing on room air. Head: Normocephalic, atraumatic. Eyes: EOMI/PERRLA. Ears: Normal hearing. Normal anatomy. Neck/trachea: Trachea midline, supple. Nose: Normal external anatomy. Mouth: Moist mucous membranes. Chest: Decreased air entry bilaterally. No wheezing or rhonchi. Cardiovascular: Positive S1, positive S2. Regular rate and rhythm. Abdomen: Positive bowel sounds in all 4 quadrants. Soft, non-tender, non- distended. : Deferred. Rectal: Deferred. Skin: Warm, dry. Intact. Extremities: 2+ radial pulses bilaterally. No lower extremity edema. Neuro: Awake, alert, oriented x3. No gross motor or sensory deficits. Cranial nerves II through XII intact. Gait not assessed. laboratory and microbiology Laboratory Tests 11/11/24 05:12 11/10/24 17:03 Test 11/11/24 05:12 Range/Units Serum Glucose 127 H 74-106 mg/dL Assessment/Plan Impression: Acute respiratory distress Atelectasis, right upper lobe Fibromyalgia DM type 2 w/ hyperglycemia PE ruled out Costochondritis Overweight, BMI 29.3 Events: Breathing on room air Supplemental oxygen PRN Follow up Neurology recommendations Continue bronchodilators PRN Incentive spirometry Accu-Cheks, glycemic control Labs and imaging reviewed. Rest of plan as noted below. Plan: Supplemental oxygen PRN Titrate to keep O2 sats above 92%. CT angio (11/10/24) demonstrated no pulmonary embolism. Low lung volumes with streaky atelectasis in the lung bases. Curvilinear atelectasis or scarring in the right upper lung. Continue bronchodilators PRN. Incentive spirometry Follow up Echocardiogram Follow up Cardiology recommendations Accu-Cheks, ISS. Monitor renal function. Monitor electrolytes. Supplement as necessary. Monitor ins and outs. Diet and lifestyle modifications for weight reduction Recommend outpatient followup w/ Rheumatology DVT prophylaxis. Prognosis: Poor given patient's multiple co-morbidities. Rest of plan per hospitalist and other consultants. Thank you, Dr. Mccall, for allowing me to participate in this patient's care. Further recommendations will depend on the patient's clinical course. Please do not hesitate to contact me if you have any questions or concerns. This medical document was created using an electronic medical record system with [employer] system. Although these documentations are being carefully reviewed, there may still be some phonetic and typographical changes. The errors are purely typographical, due to imperfection on the software program, and do not reflect any compromise in the patient's medical care. Plan discussed with: Patient, Other (SRIKANTH Dunn) JUAN RHODES MD Nov 12, 2024 21:57
[2024-11-13] VITALS (12 sets, daily range): BP systolic 115–147; BP diastolic 66–89; PULSE 73–89; RESP 15–19; TEMP 97.8–98.1; O2SAT 93–97
--- NOTE | 2024-11-13 09:25 | DVH ---
PROCEDURE: MRI OF THE BRAIN WITHOUT CONTRAST. CLINICAL INDICATION: 64 years old, Female; dizzines (intractable. TECHNIQUE: Multiplanar, multi sequence MRI of the brain was performed without intravenous contrast. COMPARISON: CT scan of the head performed on 11/06/2024. FINDINGS: The signal abnormality of the brain parenchyma is within normal limits. There are no areas of restric rome diffusion to suggest acute infarct. No evidence of space occupying mass lesion, extra-axial colle ctions or hemorrhage is noted. The ventricles, sulci and basal cisterns are intact. There is no signa l abnormality in the posterior fossa. The paranasal sinuses and mastoid air cells are well pneumatized. The orbits and nasopharynx are inta ct. The osseous structures are intact. The vessels of the skull base demonstrate signal void consistent with patency. IMPRESSION: 1. No acute intracranial abnormality.
[2024-11-13] MEDS ORDERED: MECLIZINE HCL 25 MG TAB PO PRN (10:30)
[2024-11-13] MEDS: ALPRAZolam 0.5 MG TAB PO ONE (11:26)
[2024-11-13] MEDS: DOCUSATE SOD 100 MG CAP PO PRN (11:29)
--- NOTE | 2024-11-13 14:50 | DVHINCON2 ---
Date Seen: Nov 13, 2024 Referring Physician MD Stefany Reason for Consultation Echo, dizziness History of Present Illness This is a 64-year-old female patient who presents to the emergency room with chief complaint of dizziness for one week prior to emergency room arrival. The patient reports that she has been experiencing intermittent dizziness as well as shortness of breath. The patient decided to come to the emergency room for further evaluation. She denies any syncopal episodes. Cardiology has been consulted at this time for further evaluation. No twelve lead electrocardiogram done in the emergency room. A twelve lead electrocardiogram was ordered and performed at bedside at time of assessment and reveals normal sinus rhythm without any significant ST segment changes. Serial troponin levels were negative. Significant past medical history includes mitral valve prolapse, dyslipidemia, costochondritis, fibromyalgia, irritable bowel syndrome, chronic pain, and insomnia. Of note, patient's medication list reviewed and significant for oxycodone, Xanax, tramadol, and Ambien, all of which the patient states that she takes regularly. Past Medical History Past medical history reviewed. No other significant than mentioned above. Past Surgical History Cholecystectomy Hysterectomy Family History: FH: bladder cancer G8 FATHER FH: leukemia Grandmother FH: stomach cancer Grandmother Malignant neoplasm of breast Grandmother Family History Family history reviewed. Social History Denies the use of tobacco, alcohol or illicit drugs. Allergies: Coded Allergies: Iodine (Verified Allergy, Unknown, 11/10/24) Home Meds Reported Medications Milnacipran Hydrochloride (Savella) 50 Mg Tab, 100 MG PO BID, TAB 11/11/24 Ibuprofen Micronized (MOTRIN TABLET) 600 Mg Tb, 800 MG PO PRN, #40 TAB *Black box warning-NSAIDS can increase risk of [place] & hypertension, GI irritation, ulceration, bleed, perferation. Do not use post cardiac surgery. Use short duration/lowest effective dose. 11/11/24 Trazodone Hcl (Trazodone Hcl) 50 Mg Tab, 50 MG PO, MG 11/11/24 Rosuvastatin Calcium (Crestor) 10 Mg Tab, 10 MG PO, TAB 11/11/24 Zolpidem Tartrate (Zolpidem Tartrate) 10 Mg Tab, 10 MG PO, TAB 11/11/24 Cetirizine Hcl (Kls Aller-Ron) 10 Mg Tab, 10 MG PO, TAB 11/11/24 Alprazolam (Alprazolam) 1 Mg Tab, 1 MG PO, TAB 11/11/24 Glyburide (Glyburide) 5 Mg Tab, 5 MG PO for 30 Days, MG 11/11/24 Alprazolam (Xanax) 1 Mg Tab, 1 MG PO, TAB 11/11/24 Pantoprazole Sodium Sesquihydr (Protonix) 40 Mg Tab, 40 MG PO DAILY, #30 TAB 11/11/24 Senna (Senokot) 8.6 Mg Tab, 8.6 MG PO, TAB 11/11/24 Oxycodone Hcl (OXYCODONE HCL) 5 Mg Tb, 5 MG GT, TAB 11/11/24 Home Meds Home medications reviewed. Current Medications Current Medications Medications (Trade) Dose Ordered Sig/Lilia Route PRN Reason Start Time Stop Time Status Last Admin Meclizine HCl (Antivert Tablet) 25 mg Q6HPRN PRN PO DIZZINESS 11/12/24 15:15 11/13/24 10:33 DC Alprazolam (Xanax Tablet) 1 mg DAILY PO 11/14/24 10:00 Meclizine HCl (Antivert Tablet) 25 mg Q8HPRN PRN PO DIZZINESS 11/13/24 10:30 Docusate Sodium (Colace Capsule) 100 mg DAILYPRN PRN PO FOR CONSTIPATION 11/13/24 11:00 11/13/24 11:29 Review of Systems Constitutional: No symptom reported Ears, Nose, & Throat: No symptom reported Eyes: No symptom reported Neurological: Dizziness Pulmonary/Respiratory: Shortness of breath Cardiovascular: No symptom reported Gastrointestinal: No symptom reported Genitourinary: No symptom reported Musculoskeletal: No symptom reported Skin: No symptom reported Psychiatric: No symptom reported Endocrine: No symptom reported Hematologic/Lymphatic: No symptom reported Vital Signs Vital Signs Date Time Temp Pulse Resp B/P (MAP) Pulse Ox O2 Delivery O2 Flow Rate FiO2 11/13/24 10:00 94 Room Air* 0 21 11/13/24 09:00 97.9 75 15 115/66 (82) 97.9 Physical Exam General Appearance: Cooperative. Well-developed. Well-nourished. No acute distress. Pulmonary/Respiratory: Clear, bilateral breaths sounds. Cardiovascular/Chest: Regular rate and rhythm. Peripheral Pulses: 2+ Radial (R). 2+ Radial (L). 2+ Pedal (R). 2+ Pedal (L) Abdominal Exam: Normal bowel sounds. Ankle Exam: Negative ankle edema Lower extremities: Negative lower extremity edema Neuro/Mental Status: A/OX4, coherent. Thoughts/Psych: Normal thought pattern. Appropriate mood and affect. Good judgment and insight. Appearance: No acute distress. Skin Exam: Normal inspection. Normal color. Warm and dry. Labs/Diagnostic Data Labs Test 11/13/24 11:20 11/11/24 05:12 11/10/24 21:06 11/10/24 17:03 Range/Units POC Glucose 142 H 70-106 mg/dl Sodium Level 139 136-145 mmol/L Potassium Level 3.7 3.5-5.1 mmol/L Chloride Level 106 98-107 mmol/L Carbon Dioxide Level 21 20-31 mmol/L Anion Gap 12 5-15 Blood Urea Nitrogen 11 9-23 mg/dL Creatinine 0.85 0.550-1.02 mg/dL Glomerular Filtration Rate Calc 77 >90 mL/min BUN/Creatinine Ratio 12.9 10.0-20.0 Serum Glucose 127 H 74-106 mg/dL Calcium Level 10.7 H 8.7-10.4 mg/dL Troponin I High Sensitivity < 3 L </=34 ng/L White Blood Count 9.9 4.4-10.8 10^3/uL Red Blood Count 5.10 4.0-5.20 10^6/uL Hemoglobin 14.7 12.2-16.2 g/dL Hematocrit 44.7 36.0-46.0 % Mean Corpuscular Volume 87.7 80.0-100.0 fL Mean Corpuscular Hemoglobin 28.9 28.0-32.0 pg Mean Corpuscular Hemoglobin Concent 32.9 32.0-36.0 g/dL Red Cell Distribution Width 14.3 11.8-14.3 % Platelet Count 441 140-450 10^3/uL Mean Platelet Volume 6.8 L 6.9-10.8 fL Neutrophils (%) (Auto) 58.3 37.0-80.0 % Lymphocytes (%) (Auto) 32.5 10.0-50.0 % Monocytes (%) (Auto) 5.5 0.0-12.0 % Eosinophils (%) (Auto) 2.9 0.0-7.0 % Basophils (%) (Auto) 0.8 0.0-2.0 % Neutrophils # (Auto) 5.8 1.6-8.6 10 ^3/uL Lymphocytes # (Auto) 3.2 0.4-5.4 10 ^3/uL Monocytes # (Auto) 0.5 0-1.3 10 ^3/uL Eosinophils # (Auto) 0.3 0-0.8 10 ^3/uL Basophils # (Auto) 0.1 0-0.2 10 ^3/uL Nucleated Red Blood Cells 0.0 % B-Type Natriuretic Peptide 0.41 0-100 pg/mL Assessment Dizziness, rule out cardiac etiology Dyslipidemia History of mitral valve prolapse Costochondritis Fibromyalgia ?Polypharmacy Plan/Recommendation We will continue with the following plan/recommendations (Dr. Mcallister): * Transthoracic echocardiogram to evaluate cardiac function * Bilateral carotid ultrasound * Orthostatic vital signs * Obtain UDS * Close Cardiac surveillance; notify cardiology for an ECG changes Patient seen and examined at bedside with . Thank you for allowing us to care for this patient. Please call with any questions or concerns. Critical care time spent: 44 minutes This medical document was created using an electronic medical record system with voice recognition software and computerized dictation system. Although this document has been carefully reviewed, there might still be some phonetic and typographical errors. Occasional wrong-word or ``sound-alike substitutions may have occurred due to the inherent limitations of voice recognition software. These areas are purely typographical due to imperfections of the software programs and do not reflect any compromise in the patient's medical care. Please read the chart carefully and recognize, using context, where these substitutions have occurred. Plan discussed with: Patient NYHA Physical activity limitations: NA Date of Service: Nov 13, 2024 Billing Provider: PAULO HOLDEN Cardiology Common Codes: 54573-EOPMYIQ INP/OBS CARE (High) Cardiology Consultation Codes: 57914-[id number] CONSULT <45MIN PAULO HOLDEN Nov 13, 2024 14:50
--- NOTE | 2024-11-13 17:48 | DVH ---
Carotid Duplex Date: 11/13/2024 04:21 PM Clinical History: dizziness Comparison: None Technique: Duplex Doppler evaluation of the extracranial carotid and vertebral arteries including col or Doppler and spectral/pulsed waveform analysis was performed. Findings: RIGHT SIDE: The peak systolic velocities are 76.9 cm/s in the distal CCA and on 0 4 cm/s in the proximal ICA.The ICA/CCA ratio is less than 2. The external carotid artery is patent with peak systolic velocity of 97 cm/s proximally. There is appropriate antegrade flow in the right vertebral artery, 63.4 cm/s LEFT SIDE: The peak systolic velocities are 76.3 cm/s in the distal CCA and 87.3 cm/s in the proximal ICA.. The ICA/CCA ratio is less than 2. The external carotid artery is patent with peak systolic velocity of 95.7 cm/s proximally. There is appropriate antegrade flow in the left vertebral artery, 45.3 cm/s IMPRESSION: 1. No hemodynamically significant stenosis noted in the right carotid system. 2. No hemodynamically significant stenosis noted in the left carotid system. 3. Reference: Radiology 2003; 229:[id number]
--- NOTE | 2024-11-13 18:33 | DVHINCON2 ---
Date of service: Nov 13, [address] Mccall Reason for Consultation Dizziness, intractable History of Present Illness Ms. Blanco is a 64 years old right-handed female with a history of diabetes, anxiety, fibromyalgia, she came to the [facility] on 11/10/24 with a chief company of shortness of breath, she was discomfort, and dizziness. At this time, she is alert and fully oriented, she provided the following history Starting on 11/06/2024, the patient was has had intermittent dizziness in that she is spinning with associated nausea, vomiting, sometimes with numbness in the right arm. The event lasts for 5-45 minutes, it happens 0-3 times daily. This event happens without any triggers, it can happen when she is still in the chair or bed. There was no associated vision changes, hearing change, ringing in the years, weakness in the extremities. She was not had similar problems previously She was in the [facility] Emergency room on 11/06/2024, but was discharged with no specific treatment Antiviral was prescribed but she was not get a dose yet Today her dizziness is much better Urinalysis, 11/06/2024: WBC: 27, urine leukocyte esterase: 3+ CBC, 11/10/2024: Unremarkable BMP, 11/11/2024: Unremarkable Carotid Doppler, 11/13/2024: 1. No hemodynamically significant stenosis noted in the right carotid system. 2. No hemodynamically significant stenosis noted in the left carotid system CTA chest, 11/10/2024: 1. No pulmonary embolism. 2. Low lung volumes with streaky atelectasis in the lung bases. Curvilinear atelectasis or scarring in the right upper lung. No suspicious consolidation or nodule identified. MRI head, 11/03/2024: No acute intracranial abnormality. Past Medical History Diabetes, anxiety, fibromyalgia Past Surgical History Cataract surgery, cholecystectomy, hysterectomy Family History: FH: bladder cancer G8 FATHER FH: leukemia Grandmother FH: stomach cancer Grandmother Malignant neoplasm of breast Grandmother Family History Alzheimer disease, Cancer or different types Social History She has no history of tobacco smoking, alcohol or drug abuse Allergies: Coded Allergies: Iodine (Verified Allergy, Unknown, 11/10/24) Home Meds Reported Medications Milnacipran Hydrochloride (Savella) 50 Mg Tab, 100 MG PO BID, TAB 11/11/24 Ibuprofen Micronized (MOTRIN TABLET) 600 Mg Tb, 800 MG PO PRN, #40 TAB *Black box warning-NSAIDS can increase risk of [place] & hypertension, GI irritation, ulceration, bleed, perferation. Do not use post cardiac surgery. Use short duration/lowest effective dose. 11/11/24 Trazodone Hcl (Trazodone Hcl) 50 Mg Tab, 50 MG PO, MG 11/11/24 Rosuvastatin Calcium (Crestor) 10 Mg Tab, 10 MG PO, TAB 11/11/24 Zolpidem Tartrate (Zolpidem Tartrate) 10 Mg Tab, 10 MG PO, TAB 11/11/24 Cetirizine Hcl (Kls Aller-Ron) 10 Mg Tab, 10 MG PO, TAB 11/11/24 Alprazolam (Alprazolam) 1 Mg Tab, 1 MG PO, TAB 11/11/24 Glyburide (Glyburide) 5 Mg Tab, 5 MG PO for 30 Days, MG 11/11/24 Alprazolam (Xanax) 1 Mg Tab, 1 MG PO, TAB 11/11/24 Pantoprazole Sodium Sesquihydr (Protonix) 40 Mg Tab, 40 MG PO DAILY, #30 TAB 11/11/24 Senna (Senokot) 8.6 Mg Tab, 8.6 MG PO, TAB 11/11/24 Oxycodone Hcl (OXYCODONE HCL) 5 Mg Tb, 5 MG GT, TAB 11/11/24 Current Medications Current Medications Medications (Trade) Dose Ordered Sig/Lilia Route PRN Reason Start Time Stop Time Status Last Admin Alprazolam (Xanax Tablet) 1 mg DAILY PO 11/14/24 10:00 Meclizine HCl (Antivert Tablet) 25 mg Q8HPRN PRN PO DIZZINESS 11/13/24 10:30 Docusate Sodium (Colace Capsule) 100 mg DAILYPRN PRN PO FOR CONSTIPATION 11/13/24 11:00 11/13/24 11:29 Review of Systems As above, the other systems are negative Vital Signs Vital Signs Date Time Temp Pulse Resp B/P (MAP) Pulse Ox O2 Delivery O2 Flow Rate FiO2 11/13/24 17:00 97.8 73 16 124/67 (86) 96 97.8 11/13/24 10:00 Room Air* 0 21 Physical Exam GENERAL EXAM: General: the patient is well developed and nourished. No acute distress. HEENT: Normocephalic, neck is supple, no carotid bruits. No mass. RESPIRATORY: Normal respiratory effort with symmetrical lung expansion. Lungs clear to auscultation. CARDIOVASCULAR: Regular rate and rhythm with no murmurs. S1, S2. ABDOMEN: Soft, nontender, normal bowel sound NEUROLOGICAL: MENTAL STATUS: Awake and alert. Oriented to person, place, time and general circumstances. Able to give personal history SPEECH, LANGUAGE, HIGHER CORTICAL FUNCTION: no aphasia or dysathria. CRANIAL NERVES: #2: Intact visual sol to confrontation. The optic discs were sharp. #3,4,6: Pupils are equal, round and reactive. EOMs full and conjugate. No nystagmus. #5: Facial sensation intact in all three divisions bilaterally. Mandibular strength intact. #7: Facial muscles symmetrical and strength intact. #8: Hearing grossly normal to voice. #9,10: Uvula and soft palate rise in the midline. Swallow and voice are normal. #11: Trapezius and sternomastoid strength intact bilaterally. #12: Tongue midline. No fasciculations or atrophy. SENSATION: Sensation to touch and pinprick is normal. MOTOR: Normal tone in the upper and lower extremity. Normal muscle bulk. No fasciculations. No abnormal movements or posturing. Muscle strength of the major groups in the upper extremities is 5/5. Muscle strength of the major groups in the lower extremities is 5/5. REFLEXES: Deep tendon reflexes are symmetrical. No pathological reflexes. CEREBELLAR/COORDINATION: Finger to nose and heel to hearn are normal bilaterally. GAIT/STATION: deferred. Labs/Diagnostic Data Labs Test 11/13/24 11:20 11/11/24 05:12 11/10/24 21:06 11/10/24 17:03 Range/Units POC Glucose 142 H 70-106 mg/dl Sodium Level 139 136-145 mmol/L Potassium Level 3.7 3.5-5.1 mmol/L Chloride Level 106 98-107 mmol/L Carbon Dioxide Level 21 20-31 mmol/L Anion Gap 12 5-15 Blood Urea Nitrogen 11 9-23 mg/dL Creatinine 0.85 0.550-1.02 mg/dL Glomerular Filtration Rate Calc 77 >90 mL/min BUN/Creatinine Ratio 12.9 10.0-20.0 Serum Glucose 127 H 74-106 mg/dL Calcium Level 10.7 H 8.7-10.4 mg/dL Troponin I High Sensitivity < 3 L </=34 ng/L White Blood Count 9.9 4.4-10.8 10^3/uL Red Blood Count 5.10 4.0-5.20 10^6/uL Hemoglobin 14.7 12.2-16.2 g/dL Hematocrit 44.7 36.0-46.0 % Mean Corpuscular Volume 87.7 80.0-100.0 fL Mean Corpuscular Hemoglobin 28.9 28.0-32.0 pg Mean Corpuscular Hemoglobin Concent 32.9 32.0-36.0 g/dL Red Cell Distribution Width 14.3 11.8-14.3 % Platelet Count 441 140-450 10^3/uL Mean Platelet Volume 6.8 L 6.9-10.8 fL Neutrophils (%) (Auto) 58.3 37.0-80.0 % Lymphocytes (%) (Auto) 32.5 10.0-50.0 % Monocytes (%) (Auto) 5.5 0.0-12.0 % Eosinophils (%) (Auto) 2.9 0.0-7.0 % Basophils (%) (Auto) 0.8 0.0-2.0 % Neutrophils # (Auto) 5.8 1.6-8.6 10 ^3/uL Lymphocytes # (Auto) 3.2 0.4-5.4 10 ^3/uL Monocytes # (Auto) 0.5 0-1.3 10 ^3/uL Eosinophils # (Auto) 0.3 0-0.8 10 ^3/uL Basophils # (Auto) 0.1 0-0.2 10 ^3/uL Nucleated Red Blood Cells 0.0 % B-Type Natriuretic Peptide 0.41 0-100 pg/mL Assessment Episodic vertigo, with unremarkable MRI, etiology unclear UTI according to urinalysis on 11/06/2024 without specific treatment Plan/Recommendation Monitoring Supportive treatment Telemetry Follow up urinalysis Cardiology on case to rule out cardiac etiology More recommendation per clinical course Progress: Poor This medical document was created using an electronic medical record system with [employer]it[employer] system. Although this document has been carefully reviewed, there may still be some phonetic and typographical errors. These areas are purely typographical due to imperfections of the software programs, and do not reflect any compromise in the patient's medical care. Plan discussed with: Patient, Other ROMAN CABRALES MD Nov 13, 2024 18:33
[2024-11-13 21:51] LABS: Urine Bacteria FEW /hpf (None Seen); Urine Blood Negative /uL (Negative); Urine Clarity Clear (Clear); Urine Color Colorless (Yellow); Urine Protein, UAD Negative (Negative); Urine Specific Gravity 1.009 (1.001-1.035); Urine Squamous Epithelial Cell None Seen /hpf (<5); Urine Urobilinogen Normal (Negative); Urine WBC 1 /HPF (0-5); Urine pH 6.5 (5.0-9.0)
[2024-11-13 21:57] LABS: Benzodiazephine Screen, Urine Pos (NEGATIVE); Opiate Scree,Urine Neg (NEGATIVE)
[2024-11-13 22:16] LABS: Amphetamine Screen, Urine Neg (NEGATIVE); Barbiturate Scree,Urine Neg (NEGATIVE); Cannabinoid Screen, Urine Neg (NEGATIVE); Cocaine Screen, Urine Neg (NEGATIVE); Phencyclidine Screen, Urine Neg (NEGATIVE)
--- NOTE | 2024-11-13 23:19 | DVHINCON2 ---
Date Seen: Nov 13, 2024 Referring Physician MD Stefany Reason for Consultation Echo, dizziness History of Present Illness This is a 64-year-old female with a past medical history of mitral valve prolapse, dyslipidemia, costochondritis, fibromyalgia, irritable bowel syndrome, chronic pain, and insomnia who presents to the ED on 11/10 with a complaint of dizziness for one week prior to ED arrival. The patient reports that she has been experiencing intermittent dizziness as well as shortness of breath. The patient decided to come to the ED for further evaluation. She denies any syncopal episodes. Cardiology has been consulted at this time for further evaluation. No twelve lead electrocardiogram done in the emergency room. A twelve lead electrocardiogram was ordered and performed at bedside at time of as sessment and reveals normal sinus rhythm without any significant ST segment changes. Serial troponin levels were negative. Of note, patient's medication list reviewed and significant for oxycodone, Xanax, tramadol, and Ambien, all of which the patient states that she takes regularly. Family History: FH: bladder cancer G8 FATHER FH: leukemia Grandmother FH: stomach cancer Grandmother Malignant neoplasm of breast Grandmother Allergies: Coded Allergies: Iodine (Verified Allergy, Unknown, 11/10/24) Home Meds Reported Medications Milnacipran Hydrochloride (Savella) 50 Mg Tab, 100 MG PO BID, TAB 11/11/24 Ibuprofen Micronized (MOTRIN TABLET) 600 Mg Tb, 800 MG PO PRN, #40 TAB *Black box warning-NSAIDS can increase risk of [place] & hypertension, GI irritation, ulceration, bleed, perferation. Do not use post cardiac surgery. Use short duration/lowest effective dose. 11/11/24 Trazodone Hcl (Trazodone Hcl) 50 Mg Tab, 50 MG PO, MG 11/11/24 Rosuvastatin Calcium (Crestor) 10 Mg Tab, 10 MG PO, TAB 11/11/24 Zolpidem Tartrate (Zolpidem Tartrate) 10 Mg Tab, 10 MG PO, TAB 11/11/24 Cetirizine Hcl (Kls Aller-Ron) 10 Mg Tab, 10 MG PO, TAB 11/11/24 Alprazolam (Alprazolam) 1 Mg Tab, 1 MG PO, TAB 11/11/24 Glyburide (Glyburide) 5 Mg Tab, 5 MG PO for 30 Days, MG 11/11/24 Alprazolam (Xanax) 1 Mg Tab, 1 MG PO, TAB 11/11/24 Pantoprazole Sodium Sesquihydr (Protonix) 40 Mg Tab, 40 MG PO DAILY, #30 TAB 11/11/24 Senna (Senokot) 8.6 Mg Tab, 8.6 MG PO, TAB 11/11/24 Oxycodone Hcl (OXYCODONE HCL) 5 Mg Tb, 5 MG GT, TAB 11/11/24 Current Medications Current Medications Medications (Trade) Dose Ordered Sig/Lilia Route PRN Reason Start Time Stop Time Status Last Admin Alprazolam (Xanax Tablet) 1 mg DAILY PO 11/14/24 10:00 Meclizine HCl (Antivert Tablet) 25 mg Q8HPRN PRN PO DIZZINESS 11/13/24 10:30 Docusate Sodium (Colace Capsule) 100 mg DAILYPRN PRN PO FOR CONSTIPATION 11/13/24 11:00 11/13/24 11:29 Review of Systems Constitutional: No symptom reported Ears, Nose, & Throat: No symptom reported Eyes: No symptom reported Neurological: Dizziness Pulmonary/Respiratory: Shortness of breath Cardiovascular: No symptom reported Gastrointestinal: No symptom reported Genitourinary: No symptom reported Musculoskeletal: No symptom reported Skin: No symptom reported Psychiatric: No symptom reported Endocrine: No symptom reported Hematologic/Lymphatic: No symptom reported Vital Signs Vital Signs Date Time Temp Pulse Resp B/P (MAP) Pulse Ox O2 Delivery O2 Flow Rate FiO2 11/13/24 10:00 94 Room Air* 0 21 11/13/24 09:00 97.9 75 15 115/66 (82) 97.9 Physical Exam GENERAL: Alert and oriented x 3. No acute distress. EYES: PERRL, EOMI. Anicteric. HENT: Moist mucous membranes. LUNGS: Clear to auscultation bilaterally. CARDIOVASCULAR: Regular rate and rhythm. ABDOMEN: Soft, nontender and nondistended. EXTREMITIES: No edema. NEUROLOGIC: No focal neurological deficits. SKIN: Warm, dry. Labs/Diagnostic Data Labs Test 11/13/24 11:20 11/11/24 05:12 11/10/24 21:06 11/10/24 17:03 Range/Units POC Glucose 142 H 70-106 mg/dl Sodium Level 139 136-145 mmol/L Potassium Level 3.7 3.5-5.1 mmol/L Chloride Level 106 98-107 mmol/L Carbon Dioxide Level 21 20-31 mmol/L Anion Gap 12 5-15 Blood Urea Nitrogen 11 9-23 mg/dL Creatinine 0.85 0.550-1.02 mg/dL Glomerular Filtration Rate Calc 77 >90 mL/min BUN/Creatinine Ratio 12.9 10.0-20.0 Serum Glucose 127 H 74-106 mg/dL Calcium Level 10.7 H 8.7-10.4 mg/dL Troponin I High Sensitivity < 3 L </=34 ng/L White Blood Count 9.9 4.4-10.8 10^3/uL Red Blood Count 5.10 4.0-5.20 10^6/uL Hemoglobin 14.7 12.2-16.2 g/dL Hematocrit 44.7 36.0-46.0 % Mean Corpuscular Volume 87.7 80.0-100.0 fL Mean Corpuscular Hemoglobin 28.9 28.0-32.0 pg Mean Corpuscular Hemoglobin Concent 32.9 32.0-36.0 g/dL Red Cell Distribution Width 14.3 11.8-14.3 % Platelet Count 441 140-450 10^3/uL Mean Platelet Volume 6.8 L 6.9-10.8 fL Neutrophils (%) (Auto) 58.3 37.0-80.0 % Lymphocytes (%) (Auto) 32.5 10.0-50.0 % Monocytes (%) (Auto) 5.5 0.0-12.0 % Eosinophils (%) (Auto) 2.9 0.0-7.0 % Basophils (%) (Auto) 0.8 0.0-2.0 % Neutrophils # (Auto) 5.8 1.6-8.6 10 ^3/uL Lymphocytes # (Auto) 3.2 0.4-5.4 10 ^3/uL Monocytes # (Auto) 0.5 0-1.3 10 ^3/uL Eosinophils # (Auto) 0.3 0-0.8 10 ^3/uL Basophils # (Auto) 0.1 0-0.2 10 ^3/uL Nucleated Red Blood Cells 0.0 % B-Type Natriuretic Peptide 0.41 0-100 pg/mL Assessment Dizziness, rule out cardiac etiology. Dyslipidemia. History of mitral valve prolapse. Costochondritis. Fibromyalgia. ?Polypharmacy. Plan/Recommendation I agree with your ongoing assessment and care of plan. Patient has been seen by Abbie Watts NP on my behalf, her and I discussed the plan with the patient. Transthoracic echocardiogram to evaluate cardiac function. Bilateral carotid ultrasound. Orthostatic vital signs. Obtain UDS.. Close Cardiac surveillance; notify cardiology for an ECG changes Additional plan as per the hospital course. Plan discussed with: Patient NYHA Physical activity limitations: NA Date of Service: Nov 13, 2024 Billing Provider: JUNIOR BAH MD Cardiology Common Codes: 79815-[id number] INP/OBS CARE (High) Cardiology Consultation Codes: [id number]-[id number] CONSULT <45MIN JUNIOR BAH MD Nov 13, 2024 15:31
[2024-11-14] VITALS (7 sets, daily range): BP systolic 97–145; BP diastolic 58–77; PULSE 76–97; RESP 16–18; TEMP 97.6–98.4; O2SAT 94–96
--- NOTE | 2024-11-14 08:08 | DVHPN2 ---
Progress Note - Dictate Date Seen: Nov 13, 2024 Medical Necessity Reason Pt with a Central, PICC or Fol: No Subjective Patient seen and examined at bedside. Breathing comfortably on room air. Overnight events reviewed. vital signs Vital Sign Date Time Temp Pulse Resp B/P (MAP) Pulse Ox O2 Delivery O2 Flow Rate FiO2 11/14/24 05:00 98.0 84 18 97/58 (71) 96 98.0 11/13/24 22:21 21 11/13/24 21:25 Room Air 11/13/24 21:25 0 Total Intake and Output 11/13/24 11/13/24 11/14/24 15:00 23:00 07:00 Intake Total 5600 ml 1560 ml Balance 5600 ml 1560 ml medications Current Medications Medications Dose Ordered Sig/Lilia Route Start Time Stop Time Status Last Admin Dose Admin Atorvastatin Calcium 10 mg HS PO 11/11/24 22:00 11/13/24 21:27 10 MG Gabapentin 100 mg DAILY PO 11/11/24 10:00 Albuterol 2.5 mg Q6HPRN PRN NEB 11/10/24 22:15 11/11/24 08:41 2.5 MG Diagnostic Test (Pha) 1 strip Q6HR 11/11/24 00:00 11/14/24 05:12 1 STRIP Insulin Human Regular Q6HR SC 11/11/24 00:00 11/13/24 11:28 2 UNITS Dextrose 50 ml UD PRN IV 11/10/24 22:15 Ondansetron HCl 4 mg Q4HP PRN IV 11/10/24 22:15 11/12/24 18:08 4 MG Enoxaparin Sodium 40 mg DAILY SC 11/11/24 10:00 11/13/24 10:19 40 MG Acetaminophen 650 mg Q8HPRN PRN PO 11/11/24 01:45 11/12/24 18:08 650 MG Oxycodone HCl 10 mg TIDPRN PRN PO 11/11/24 03:15 11/13/24 10:18 10 MG Trazodone HCl 50 mg HS PO 11/11/24 22:00 11/13/24 21:27 50 MG Alprazolam 1 mg DAILY PO 11/14/24 10:00 Meclizine HCl 25 mg Q8HPRN PRN PO 11/13/24 10:30 Docusate Sodium 100 mg DAILYPRN PRN PO 11/13/24 11:00 11/13/24 11:29 100 MG objective Gen.: Patient lying in bed in no apparent distress. Breathing on room air. Head: Normocephalic, atraumatic. Eyes: EOMI/PERRLA. Ears: Normal hearing. Normal anatomy. Neck/trachea: Trachea midline, supple. Nose: Normal external anatomy. Mouth: Moist mucous membranes. Chest: Decreased air entry bilaterally. No wheezing or rhonchi. Cardiovascular: Positive S1, positive S2. Regular rate and rhythm. Abdomen: Positive bowel sounds in all 4 quadrants. Soft, non-tender, non- distended. : Deferred. Rectal: Deferred. Skin: Warm, dry. Intact. Extremities: 2+ radial pulses bilaterally. No lower extremity edema. Neuro: Awake, alert, oriented x3. No gross motor or sensory deficits. Cranial nerves II through XII intact. Gait not assessed. laboratory and microbiology Laboratory Tests 11/11/24 05:12 11/10/24 17:03 Test 11/11/24 05:12 Range/Units Serum Glucose 127 H 74-106 mg/dL Assessment/Plan Impression: Acute respiratory distress Atelectasis, right upper lobe Fibromyalgia DM type 2 w/ hyperglycemia PE ruled out Costochondritis Overweight, BMI 29.3 Events: Breathing on room air Supplemental oxygen PRN Neurology recommendations appreciated. EKG performed. Cardiology recommendations appreciated Continue bronchodilators PRN Incentive spirometry On statin Pain control Avoid oversedation Colace for constipation Accu-Cheks, glycemic control Lovenox for DVT prophylaxis Labs and imaging reviewed. Rest of plan as noted below. Plan: Supplemental oxygen PRN Titrate to keep O2 sats above 92%. CT angio (11/10/24) demonstrated no pulmonary embolism. Low lung volumes with streaky atelectasis in the lung bases. Curvilinear atelectasis or scarring in the right upper lung. Continue bronchodilators PRN. Incentive spirometry Accu-Cheks, ISS. Monitor renal function. Monitor electrolytes. Supplement as necessary. Monitor ins and outs. Diet and lifestyle modifications for weight reduction Recommend outpatient followup w/ Rheumatology DVT prophylaxis. Prognosis: Guarded given patient's multiple co-morbidities. Rest of plan per hospitalist and other consultants. Thank you, Dr. Mccall, for allowing me to participate in this patient's care. Further recommendations will depend on the patient's clinical course. Please do not hesitate to contact me if you have any questions or concerns. This medical document was created using an electronic medical record system with [employer] dictation system. Although these documentations are being carefully reviewed, there may still be some phonetic and typographical changes. The errors are purely typographical, due to imperfection on the software program, and do not reflect any compromise in the patient's medical care. Plan discussed with: Patient, Other (RN) JUAN RHODES MD Nov 14, 2024 08:08
[2024-11-14] MEDS: ALPRAZolam 0.5 MG TAB PO SCH (09:18)
--- NOTE | 2024-11-14 11:28 | DVHPN2 ---
Reviewed: Care Plan, H&P, Labs, Medications, Previous Orders Changes from previous H/P or p: No Changes General: Per HPI Objective Vitals Vital Signs Date Time Temp Pulse Resp B/P (MAP) Pulse Ox O2 Delivery O2 Flow Rate FiO2 11/14/24 09:00 97.6 78 16 145/75 (98) 96 97.6 11/14/24 08:00 Room Air* 0 21 Intake/Output Intake and Output 11/14/24 07:00 Intake Total 7160 ml Balance 7160 ml Intake Oral 7160 ml # Voids 14 Medications Current Medications Medications Dose Ordered Sig/Lilia Route Start Time Stop Time Status Last Admin Dose Admin Atorvastatin Calcium 10 mg HS PO 11/11/24 22:00 11/13/24 21:27 10 MG Gabapentin 100 mg DAILY PO 11/11/24 10:00 11/14/24 09:17 100 MG Albuterol 2.5 mg Q6HPRN PRN NEB 11/10/24 22:15 11/11/24 08:41 2.5 MG Diagnostic Test (Pha) 1 strip Q6HR 11/11/24 00:00 11/14/24 05:12 1 STRIP Insulin Human Regular Q6HR SC 11/11/24 00:00 11/13/24 11:28 2 UNITS Dextrose 50 ml UD PRN IV 11/10/24 22:15 Ondansetron HCl 4 mg Q4HP PRN IV 11/10/24 22:15 11/12/24 18:08 4 MG Enoxaparin Sodium 40 mg DAILY SC 11/11/24 10:00 11/14/24 09:17 40 MG Acetaminophen 650 mg Q8HPRN PRN PO 11/11/24 01:45 11/12/24 18:08 650 MG Oxycodone HCl 10 mg TIDPRN PRN PO 11/11/24 03:15 11/13/24 10:18 10 MG Trazodone HCl 50 mg HS PO 11/11/24 22:00 11/13/24 21:27 50 MG Alprazolam 1 mg DAILY PO 11/14/24 10:00 11/14/24 09:18 1 MG Meclizine HCl 25 mg Q8HPRN PRN PO 11/13/24 10:30 Docusate Sodium 100 mg DAILYPRN PRN PO 11/13/24 11:00 11/13/24 11:29 100 MG Laboratory Results Laboratory Tests 11/10/24 17:03 11/11/24 05:12 Urinalysis Test 11/13/24 21:30 Urine Color Colorless (Yellow) Urine Clarity Clear (Clear) Urine pH 6.5 (5.0-9.0) Urine Specific [place] 1.009 (1.001-1.035) Urine Protein Negative (Negative) Urine Ketones Negative (Negative) Urine Blood Negative /uL (Negative) Urine Nitrite Negative (Negative) Urine Bilirubin Negative (Negative) Urine Urobilinogen Normal mg/dL (Negative) Urine Leukocyte Esterase Negative /uL (Negative) Urine RBC <1 /hpf (0 - 4) Urine Microscopic WBC 1 /HPF (0-5) Urine Squamous Epithelial Cells None seen /hpf (<5) Urine Bacteria Few /hpf (None Seen) H Urine Glucose Normal mg/dL (Normal) Assessment/Plan Assessment/Plan Acute respiratory distress Diabetes mellitus intractable dizziness nausea, related to dizziness Plan Ad[facility] the [facility] to the hospitalist Pulmonary consultation Echocardiogram pending 11/13/2024: I discussed with pt regarding awaiting for MRI to be resulted and to wait for full evaluation by neurology cardiology is also on board to evaluate for ECHO and dizziness Plan discussed with: Patient Date of Service: Nov 13, 2024 Billing Provider: JENNA PYLE DO Common Visit Codes: [id number] INP/OBS CARE(HIGH) JENNA PYLE DO Nov 14, 2024 11:28
--- NOTE | 2024-11-14 12:58 | DVHPN2 ---
Reviewed: Care Plan, H&P, Labs, Medications, Previous Orders General: Per HPI Objective Vitals Vital Signs Date Time Temp Pulse Resp B/P (MAP) Pulse Ox O2 Delivery O2 Flow Rate FiO2 11/14/24 09:00 97.6 78 16 145/75 (98) 96 97.6 11/14/24 08:00 Room Air* 0 21 Intake/Output Intake and Output 11/14/24 07:00 Intake Total 7160 ml Balance 7160 ml Intake Oral 7160 ml # Voids 14 Medications Current Medications Medications Dose Ordered Sig/Lilia Route Start Time Stop Time Status Last Admin Dose Admin Atorvastatin Calcium 10 mg HS PO 11/11/24 22:00 11/13/24 21:27 10 MG Gabapentin 100 mg DAILY PO 11/11/24 10:00 11/14/24 09:17 100 MG Albuterol 2.5 mg Q6HPRN PRN NEB 11/10/24 22:15 11/11/24 08:41 2.5 MG Diagnostic Test (Pha) 1 strip Q6HR 11/11/24 00:00 11/14/24 12:05 1 STRIP Insulin Human Regular Q6HR SC 11/11/24 00:00 11/13/24 11:28 2 UNITS Dextrose 50 ml UD PRN IV 11/10/24 22:15 Ondansetron HCl 4 mg Q4HP PRN IV 11/10/24 22:15 11/12/24 18:08 4 MG Enoxaparin Sodium 40 mg DAILY SC 11/11/24 10:00 11/14/24 09:17 40 MG Acetaminophen 650 mg Q8HPRN PRN PO 11/11/24 01:45 11/12/24 18:08 650 MG Oxycodone HCl 10 mg TIDPRN PRN PO 11/11/24 03:15 11/13/24 10:18 10 MG Trazodone HCl 50 mg HS PO 11/11/24 22:00 11/13/24 21:27 50 MG Alprazolam 1 mg DAILY PO 11/14/24 10:00 11/14/24 09:18 1 MG Meclizine HCl 25 mg Q8HPRN PRN PO 11/13/24 10:30 Docusate Sodium 100 mg DAILYPRN PRN PO 11/13/24 11:00 11/13/24 11:29 100 MG Laboratory Results Laboratory Tests 11/10/24 17:03 11/11/24 05:12 Urinalysis Test 11/13/24 21:30 Urine Color Colorless (Yellow) Urine Clarity Clear (Clear) Urine pH 6.5 (5.0-9.0) Urine Specific [place] 1.009 (1.001-1.035) Urine Protein Negative (Negative) Urine Ketones Negative (Negative) Urine Blood Negative /uL (Negative) Urine Nitrite Negative (Negative) Urine Bilirubin Negative (Negative) Urine Urobilinogen Normal mg/dL (Negative) Urine Leukocyte Esterase Negative /uL (Negative) Urine RBC <1 /hpf (0 - 4) Urine Microscopic WBC 1 /HPF (0-5) Urine Squamous Epithelial Cells None seen /hpf (<5) Urine Bacteria Few /hpf (None Seen) H Urine Glucose Normal mg/dL (Normal) MANI LEIVA MD Nov 14, 2024 12:58
--- NOTE | 2024-11-14 13:35 | DVHPN2 ---
Reviewed: Care Plan, H&P, Labs, Medications, Previous Orders General: Per HPI Objective Vitals Vital Signs Date Time Temp Pulse Resp B/P (MAP) Pulse Ox O2 Delivery O2 Flow Rate FiO2 11/14/24 09:00 97.6 78 16 145/75 (98) 96 97.6 11/14/24 08:00 Room Air* 0 21 Intake/Output Intake and Output 11/14/24 07:00 Intake Total 7160 ml Balance 7160 ml Intake Oral 7160 ml # Voids 14 Medications Current Medications Medications Dose Ordered Sig/Lilia Route Start Time Stop Time Status Last Admin Dose Admin Atorvastatin Calcium 10 mg HS PO 11/11/24 22:00 11/13/24 21:27 10 MG Gabapentin 100 mg DAILY PO 11/11/24 10:00 11/14/24 09:17 100 MG Albuterol 2.5 mg Q6HPRN PRN NEB 11/10/24 22:15 11/11/24 08:41 2.5 MG Diagnostic Test (Pha) 1 strip Q6HR 11/11/24 00:00 11/14/24 12:05 1 STRIP Insulin Human Regular Q6HR SC 11/11/24 00:00 11/13/24 11:28 2 UNITS Dextrose 50 ml UD PRN IV 11/10/24 22:15 Ondansetron HCl 4 mg Q4HP PRN IV 11/10/24 22:15 11/12/24 18:08 4 MG Enoxaparin Sodium 40 mg DAILY SC 11/11/24 10:00 11/14/24 09:17 40 MG Acetaminophen 650 mg Q8HPRN PRN PO 11/11/24 01:45 11/12/24 18:08 650 MG Oxycodone HCl 10 mg TIDPRN PRN PO 11/11/24 03:15 11/13/24 10:18 10 MG Trazodone HCl 50 mg HS PO 11/11/24 22:00 11/13/24 21:27 50 MG Alprazolam 1 mg DAILY PO 11/14/24 10:00 11/14/24 09:18 1 MG Meclizine HCl 25 mg Q8HPRN PRN PO 11/13/24 10:30 Docusate Sodium 100 mg DAILYPRN PRN PO 11/13/24 11:00 11/13/24 11:29 100 MG Laboratory Results Laboratory Tests 11/10/24 17:03 11/11/24 05:12 Urinalysis Test 11/13/24 21:30 Urine Color Colorless (Yellow) Urine Clarity Clear (Clear) Urine pH 6.5 (5.0-9.0) Urine Specific [place] 1.009 (1.001-1.035) Urine Protein Negative (Negative) Urine Ketones Negative (Negative) Urine Blood Negative /uL (Negative) Urine Nitrite Negative (Negative) Urine Bilirubin Negative (Negative) Urine Urobilinogen Normal mg/dL (Negative) Urine Leukocyte Esterase Negative /uL (Negative) Urine RBC <1 /hpf (0 - 4) Urine Microscopic WBC 1 /HPF (0-5) Urine Squamous Epithelial Cells None seen /hpf (<5) Urine Bacteria Few /hpf (None Seen) H Urine Glucose Normal mg/dL (Normal) Assessment/Plan My Orders Orders - MANI LEIVA MD Procedure Category Date Status Time Discharge DISCHARGE 11/14/24 Verified 13:34 MANI LEIVA MD Nov 14, 2024 13:35
--- NOTE | 2024-11-14 19:13 | DVHSR ---
APPROVED REPORT EXAM: Two-dimensional and M-mode echocardiogram with Doppler and color Doppler. Blood Pressure: 143/82 mmHg INDICATION SOB RISK FACTORS Height: 62, Weight: 156 DIMENSIONS LVDd3.4 (3.8-5.7cm)LA (2D)3.1 (1.9-4.0cm)Aortic Root3.1 (2.0-3.7cm) LVDs2.2 (2.5-4.0cm)LA (MM) (1.9-4.0cm)Aortic Cusp Exc2.0 (1.5-2.0cm) EF (%) 66.0 (55-70%)Rt. Atrium3.2 (1.9-4.0cm)Asc. Aorta cm IVSd1.0 (0.7-1.1cm)RV (D) (1.8-2.4cm) PWd1.2 (0.7-1.1cm) Mitral Valve MitralMitral Stenosis E wave0.63m/sMV Mean GR.mmHg A wave1.11m/sMV Peak GR.mmHg E/A ratio0.62D MVAcm2 DECEL [id number] 1/2 [place] Aortic Valve Aortic ValveAortic Stenosis V11.42m/Sarah Beth Mean GR.6mmHg V21.82m/Sarah Beth Peak GR.13mmHg LVOT Diameter1.7 (1.8-2.4cm)Doppler AVA1.77cm2 Pulmonic Valve V21.13m/s Other Information Technically limited study due to patient sensitive to touch. Conclusion NORMAL LV EF AND IS 65% NORMAL VALVES NORMAL RV FUNCTION NO EFFUSION
--- NOTE | 2024-11-14 21:31 | DVHPN2 ---
Progress Note - Dictate Date Seen: Nov 14, 2024 Medical Necessity Reason Pt with a Central, PICC or Fol: No Subjective Patient was seen and evaluated in follow up. No overnight events. MRI brain shows no acute intracranial abnormality. Carotid Duplex is unremarkable. Patient is cardiac stable for discharge. vital signs Vital Sign Date Time Temp Pulse Resp B/P (MAP) Pulse Ox O2 Delivery O2 Flow Rate FiO2 11/14/24 14:09 98.4 85 17 94 11/14/24 10:00 Room Air 11/14/24 10:00 0 21 11/14/24 09:00 145/75 (98) Total Intake and Output 11/13/24 11/13/24 11/14/24 15:00 23:00 07:00 Intake Total 5600 ml 1560 ml Balance 5600 ml 1560 ml objective GENERAL: Alert and oriented x 3. No acute distress. EYES: PERRL, EOMI. Anicteric. HENT: Moist mucous membranes. LUNGS: Clear to auscultation bilaterally. CARDIOVASCULAR: Regular rate and rhythm. ABDOMEN: Soft, nontender and nondistended. EXTREMITIES: No edema. NEUROLOGIC: No focal neurological deficits. SKIN: Warm, dry. laboratory and microbiology Laboratory Tests 11/11/24 05:12 11/10/24 17:03 Test 11/11/24 05:12 Range/Units Serum Glucose 127 H 74-106 mg/dL Problem List Dizziness. Dyslipidemia. History of mitral valve prolapse. Costochondritis. Fibromyalgia. ?Polypharmacy. Assessment/Plan Continued all current supportive medical care. Meclizine. Lipitor. DVT prophylactics. Oxycodone for pain. Additional plan as per the hospital course. Plan discussed with: Patient JUNIOR BAH MD Nov 14, 2024 21:31
--- NOTE | 2024-11-14 23:06 | DVHPN2 ---
Progress Note - Dictate Date Seen: Nov 14, 2024 Medical Necessity Reason Pt with a Central, PICC or Fol: No Subjective Patient seen and examined at bedside. Breathing comfortably on room air. Overnight events reviewed. vital signs Vital Sign Date Time Temp Pulse Resp B/P (MAP) Pulse Ox O2 Delivery O2 Flow Rate FiO2 11/14/24 14:09 98.4 85 17 94 11/14/24 10:00 Room Air 11/14/24 10:00 0 21 11/14/24 09:00 145/75 (98) Total Intake and Output 11/13/24 11/13/24 11/14/24 15:00 23:00 07:00 Intake Total 5600 ml 1560 ml Balance 5600 ml 1560 ml objective Gen.: Patient lying in bed in no apparent distress. Breathing on room air. Head: Normocephalic, atraumatic. Eyes: EOMI/PERRLA. Ears: Normal hearing. Normal anatomy. Neck/trachea: Trachea midline, supple. Nose: Normal external anatomy. Mouth: Moist mucous membranes. Chest: Decreased air entry bilaterally. No wheezing or rhonchi. Cardiovascular: Positive S1, positive S2. Regular rate and rhythm. Abdomen: Positive bowel sounds in all 4 quadrants. Soft, non-tender, non- distended. : Deferred. Rectal: Deferred. Skin: Warm, dry. Intact. Extremities: 2+ radial pulses bilaterally. No lower extremity edema. Neuro: Awake, alert, oriented x3. No gross motor or sensory deficits. Cranial nerves II through XII intact. Gait not assessed. laboratory and microbiology Laboratory Tests 11/11/24 05:12 11/10/24 17:03 Test 11/11/24 05:12 Range/Units Serum Glucose 127 H 74-106 mg/dL Assessment/Plan Impression: Acute respiratory distress Atelectasis, right upper lobe Fibromyalgia DM type 2 w/ hyperglycemia PE ruled out Costochondritis Overweight, BMI 29.3 Events: Breathing on room air Supplemental oxygen PRN Neurology recommendations appreciated. Cardiology recommendations appreciated Continue bronchodilators Incentive spirometry Accu-Cheks, glycemic control Lovenox for DVT prophylaxis Patient is stable for discharge from the pulmonary standpoint. Labs and imaging reviewed. Rest of plan as noted below. Plan: Supplemental oxygen PRN Titrate to keep O2 sats above 92%. Continue bronchodilators PRN. Incentive spirometry Accu-Cheks, ISS PRN. Monitor renal function. Monitor electrolytes. Supplement as necessary. Monitor ins and outs. Diet and lifestyle modifications for weight reduction Recommend outpatient followup w/ Rheumatology DVT prophylaxis. Prognosis: Guarded given patient's multiple co-morbidities. Rest of plan per hospitalist and other consultants. Thank you, Dr. Mccall, for allowing me to participate in this patient's care. Further recommendations will depend on the patient's clinical course. Please do not hesitate to contact me if you have any questions or concerns. This medical document was created using an electronic medical record system with [employer] dictation system. Although these documentations are being carefully reviewed, there may still be some phonetic and typographical changes. The errors are purely typographical, due to imperfection on the software program, and do not reflect any compromise in the patient's medical care. Plan discussed with: Patient, Other (SRIKANTH Navarro) JUAN RHODES MD Nov 14, 2024 23:06
--- NOTE | 2024-11-16 07:51 | ECG ---
[facility] Test Date: 2024-11-13 Test Time: 13:14:57 Pat Name: MYRIAM JASMINE Department: Respiratoy Room: [address] [place] [address] 4 Gender: F [employer] Fe[employer]: DON : [id number] Requested By: PAULO HOLDEN Order Number: [id number] Reading MD: Measurements Intervals [place] Rate: 82 P: 34 [place]: 148 QRS: 39 QRSD: 80 T: 33 QT: 351 QTc: 410 Interpretive Statements Sinus rhythm Low voltage, precordial leads Please click the below link to view image of tracing.
== END 2024-11-14 14:41 | disposition home or self-care (01) | DRG 203 ==
LOC: ER 11:43 → OVERFLOW 22:04 → EAST 22:17
PROVIDERS: ADMIT Internal Medicine; ATTEND Internal Medicine
DX: M94.0 Chondrocostal junction syndrome [Tietze] (principal); E11.65 Type 2 diabetes mellitus with hyperglycemia; M79.7 Fibromyalgia; J98.11 Atelectasis; E66.3 Overweight; E78.5 Hyperlipidemia, unspecified; G89.4 Chronic pain syndrome; N39.0 Urinary tract infection, site not specified; F41.9 Anxiety disorder, unspecified; Z90.49 Acquired absence of other specified parts of digestive tract; Z90.710 Acquired absence of both cervix and uterus; Z88.8 Allergy status to other drugs, medicaments and biological substances; Z80.0 Family history of malignant neoplasm of digestive organs; Z80.3 Family history of malignant neoplasm of breast; Z80.52 Family history of malignant neoplasm of bladder; Z80.6 Family history of leukemia; Z82.0 Family history of epilepsy and other diseases of the nervous system; Z68.29 Body mass index [BMI] 29.0-29.9, adult
CPT/HCPCS: 36415; 70551; 71275; 80048; 80307; 81001; 82962; 83880; 84484; 85025; 93005; 93306; 93886; 94640; 96374; G0378; J1815; J2405